=== PATIENT | male | born 1975 | race Caucasian/White ===

== ENCOUNTER 2024-09-19 17:49 | Emergency (ER) | payer MEDICAID, SELFPAY ==
--- NOTE | 2024-09-19 18:13 | PC.NURSE ---
i called pt from the lobby x1 and recived no answer.
[2024-09-19 18:16] VITALS: BP 173/101; PULSE 89; RESP 18; TEMP 37.1; O2SAT 98; BMI 33.3
--- NOTE | 2024-09-19 18:24 | XR_ITS ---
Examination: Forearm, left, 2 views. Technique: Forearm, AP, lateral 2 views Date and time of exam: September 19, 2024 1857 hrs. Indications: Injury to the forearm today, pain Findings: No fracture. Low the lateral view the distal ulna is dorsally positioned, clinical correlation advised No opaque foreign body seen Impression: No opaque foreign body seen
--- NOTE | 2024-09-19 18:40 | EDNOTE_ITS ---
ED Wound/Laceration-RME/HPI General Chief Complaint: Wound/Laceration Stated Complaint: CUT HAND W/HANDSAW Time Seen by Provider: 09/19/24 18:29 Arrival date/time: 09/19/24 17:49 49M with no significant PMH presents to ED with L forearm lac after he accidentally cut himself with a saw. Patient has not had a tetanus shot in the past 5 years. Limitations: no limitations Related Data Allergies Allergy/AdvReac Type Severity Reaction Status Date / Time No Known Allergies Allergy Verified 09/19/24 17:54 Review of Systems Review of Systems Systems Reviewed: All systems reviewed, normal except as documented Constitutional Constitutional: Reports system reviewed and no additional complaints, except as documented, Denies fever(s) and Denies headache(s) ENT Ears, Nose, Mouth, and Throat: Denies disequilibrium and Denies headache(s) Cardiovascular Cardiovascular: Reports system reviewed and no additional complaints, except as documented, Denies chest pain and Denies dyspnea Respiratory Respiratory: Reports system reviewed and no additional complaints, except as documented, Denies cough and Denies dyspnea Gastrointestinal Gastrointestinal: Reports system reviewed and no additional complaints, except as documented, Denies abdominal pain, Denies nausea and Denies vomiting Integumentary/Breasts Skin/Breast: Reports as per HPI and Reports skin pain Neurologic Neurologic: Reports system reviewed and no additional complaints, except as documented, Denies confusion, Denies disequilibrium and Denies headache(s) Psychiatric Psychiatric: Denies confusion Past Medical History Social History SMOKING STATUS: Current every day smoker ED Exam General Limitations: Present no limitations General appearance: Present alert and in no apparent distress Head Head exam: Present atraumatic Eye Eye exam: Present normal appearance, PERRL and EOMI ENT ENT exam: Present normal exam, normal oropharynx and mucous membranes moist Neck Neck exam: Present normal inspection, full ROM and trachea midline Chest Chest inspection: Present normal inspection and symmetric chest wall rise Respiratory Respiratory exam: Present normal lung sounds bilaterally Cardiovascular Cardiovascular exam: Present regular rate, normal rhythm and normal heart sounds Abdominal Exam Abdominal exam: Present soft and normal bowel sounds Extremities Exam Extremities exam: Present full ROM Expanded Upper Extremity Exam Forearm/Wrist exam: Present full ROM and laceration (3 cm L forearm near wrist) Back Exam Back exam: Present normal inspection and full ROM Neurological Exam Neurological exam: Present alert, oriented X3 and CN II-XII intact Psychiatric Psychiatric exam: Present normal affect and normal mood Skin Skin exam: Present warm, dry, intact and normal color Course Quality Measures none Orders Category Date Time Status Stapler to Beside ONCE Care 09/19/24 18:34 Completed Wound Care NOW Care 09/19/24 18:24 Completed XR forearm LT 2V Stat Exams 09/19/24 18:24 Completed Naproxen [Naprosyn] Med 09/19/24 21:38 Discontinued 500 mg PO X1 ONE Tet,Diphth,Pertuss(Acell)-Tdap [Boostrix Vacc] Med 09/19/24 18:24 Discontinued 0.5 ml IMI .ONCE ONE Vital Signs Vital signs: Vital Signs Temperature 98.8 F 09/19/24 18:16 Pulse Rate 89 09/19/24 18:16 Respiratory Rate 18 09/19/24 18:16 Blood Pressure 173/101 H 09/19/24 18:16 Pulse Oximetry (%) 98 09/19/24 18:16 Oxygen Delivery Method Room Air 09/19/24 18:16 O2 at 98% on RA and WNLs Wound / Laceration MDM Narrative MDM Narrative:: 49M with no significant PMH presents to ED with L forearm lac after he accidentally cut himself with a saw. Patient has not had a tetanus shot in the past 5 years. Physical exam reveals 3 cm lac on L forearm near wrist. ROM intact. Patient is afebrile, calm, and alert. Wound thoroughly irrigated. Tdap given. Closed with 10 vitor. XR no FB. Patient data External records reviewed:: None Clinical information provided by:: patient Social determinants that could affect healthcare access:: none Patient has the following chronic illnesses:: none How is presenting disease/condition affected by chronic disease/condition?: no chronic disease Evaluation data The following diagnostics were reviewed and interpreted by me:: radiology exam(s) Lab and/or radiology exams considered but not ordered:: ordered Interpretation Summary: above Medications / Prescriptions Medications or Prescriptions considered but not ordered:: ordered Medication administrations:: Medication Administration History Discontinued Medications Diphtheria/Tetanus/Acell Pertussis (Diphth,Pertuss(Acell),Tet Vac 0.5 Ml Vial) 0.5 ml IMi .ONCE ONE Stop: 09/19/24 18:25 Last Admin: 09/19/24 19:26 Dose: 0.5 ml Documented By: TINY Naproxen (Naproxen 250 Mg Tablet) 500 mg PO X1 ONE Stop: 09/19/24 21:39 Last Admin: 09/19/24 21:55 Dose: 500 mg Documented By: TINY Comments: pt calm and relaxed while giving medication above Consultations Consultation(s) initiated? (list below): No Diagnosis Wound Differential Diagnosis: laceration, abrasion and avulsion of skin Most likely diagnosis given after review of the tests above:: laceration Admission Indicated Admission indicated?: not indicated Admission Request Was there a request for admission?: No Disposition Plan Disposition Plan: Discharge Discharge Attestation Discharge Attestation: The patient and all family members were given an opportunity to ask questions and understood the discharge instructions. Discharge instructions specifically effects, indications for sooner follow up or return to the emergency department, and the expected course of current diagnosis. Patient condition: Stable Discharge Plan Plan Patient Disposition: HOME (Self Care) Disposition Comment: Stable Prescriptions/Referrals Referrals: No Primary/Family,Physician [Primary Care Provider] - In 1 week Problem List Clinical Impression: Laceration Patient/Caregiver Discharge Instructions Additional Instructions: Please follow-up with PCP within 24-48 hours and return immediately if symptoms worsen. Have vitor removed in about 10 days. Print Language: Japanese Stand Alone Forms: Patient Portal Info Letter CUONG/KAY Supervising Physician PRAFUL Supervising Physician: Dr. Mcdowell
[2024-09-19] MEDS: DIPHTH,PERTUSS(ACELL),TET VAC 0.5 ML VIAL IMi (19:26)
[2024-09-19] MEDS: NAPROXEN 250 MG TABLET 500 MG PO (21:55)
== END 2024-09-19 22:00 | disposition home or self-care (01) ==
PROVIDERS: Emergency Provider Emergency Medicine
DX: S51.812A Laceration without foreign body of left forearm, initial encounter (principal); W27.0XXA Contact with workbench tool, initial encounter; Z23 Encounter for immunization
CPT/HCPCS: 12002; 73090; 90471; 90715; 99283; A9270

== ENCOUNTER 2024-09-29 08:54 | Emergency (ER) | payer MEDICAID, SELFPAY ==
[2024-09-29 09:02] VITALS: BMI 33.9
[2024-09-29 09:03] VITALS: BP 140/85; PULSE 81; RESP 19; TEMP 37.1; O2SAT 100
--- NOTE | 2024-09-29 09:03 | PD.EDWOUND ---
ED Wound/Laceration-RME/HPI General Chief Complaint: Wound Recheck / Suture Removal Stated Complaint: Staple removal Time Seen by Provider: 09/29/24 08:59 Arrival date/time: 09/29/24 08:54 49-year-old male presents to the emergency department requesting staple removal patient has vitor in place left forearm Limitations: no limitations Related Data Allergies Allergy/AdvReac Type Severity Reaction Status Date / Time No Known Allergies Allergy Verified 09/19/24 17:54 Review of Systems Review of Systems Systems Reviewed: All systems reviewed, normal except as documented Constitutional Constitutional: Reports system reviewed and no additional complaints, except as documented, Denies fever(s) and Denies headache(s) Eyes Eyes: Reports system reviewed and no additional complaints, except as documented and Denies blurry vision ENT Ears, Nose, Mouth, and Throat: Reports system reviewed and no additional complaints, except as documented, Denies headache(s), Denies nasal congestion and Denies nasal discharge Cardiovascular Cardiovascular: Reports system reviewed and no additional complaints, except as documented, Denies chest pain and Denies dyspnea Respiratory Respiratory: Reports system reviewed and no additional complaints, except as documented, Denies chest congestion, Denies cough and Denies dyspnea Gastrointestinal Gastrointestinal: Reports system reviewed and no additional complaints, except as documented and Denies abdominal pain Integumentary/Breasts Skin/Breast: Reports system reviewed and no additional complaints, except as documented, Denies rash and Reports wounds ([place] in place left forearm) Neurologic Neurologic: Reports system reviewed and no additional complaints, except as documented, Reports as per HPI and Denies headache(s) Past Medical History Past Medical History NEUROLOGIC: Negative Neurological Disorders CARDIAC: Negative Cardiac Disorders ED Exam General Limitations: Present no limitations General appearance: Present alert and in no apparent distress Head Head exam: Present atraumatic Eye Eye exam: Present normal appearance, PERRL and EOMI ENT ENT exam: Present normal exam, normal oropharynx and mucous membranes moist Neck Neck exam: Present normal inspection, full ROM and trachea midline Chest Chest inspection: Present normal inspection and symmetric chest wall rise Respiratory Respiratory exam: Present normal lung sounds bilaterally Cardiovascular Cardiovascular exam: Present regular rate, normal rhythm and normal heart sounds Abdominal Exam Abdominal exam: Present soft and normal bowel sounds Extremities Exam Extremities exam: Present normal inspection and full ROM Back Exam Back exam: Present normal inspection and full ROM Neurological Exam Neurological exam: Present alert, oriented X3 and CN II-XII intact Psychiatric Psychiatric exam: Present normal affect and normal mood Skin Skin exam: Present warm, dry and other ([place] in place left forearm) Course Quality Measures none Vital Signs Vital signs: Vital Signs Temperature 98.7 F 09/29/24 09:03 Pulse Rate 81 09/29/24 09:03 Respiratory Rate 19 09/29/24 09:03 Blood Pressure 140/85 H 09/29/24 09:03 Pulse Oximetry (%) 100 09/29/24 09:03 Oxygen Delivery Method Room Air 09/29/24 09:03 O2 saturation 100% on room air within normal limits Wound / Laceration MDM Narrative MDM Narrative:: 49-year-old male presents to the emergency department requesting staple removal patient has vitor in place left forearm On exam patient has vitor in place left forearm patient has no evidence of infection no discharge wound appears to be well-approximated All vitor removed in their entirety Patient discharged home in no distress to follow-up with PCP as needed and for emergent symptoms return immediately Patient data External records reviewed:: [facility] previous records Clinical information provided by:: patient Social determinants that could affect healthcare access:: none Patient has the following chronic illnesses:: See history How is presenting disease/condition affected by chronic disease/condition?: uneffected by Evaluation data The following diagnostics were reviewed and interpreted by me:: other (specify) (N/A) Lab and/or radiology exams considered but not ordered:: Consider not ordered Interpretation Summary: N/A Medications / Prescriptions Medications or Prescriptions considered but not ordered:: Given no meds Medication administrations:: No meds Consultations Consultation(s) initiated? (list below): No Diagnosis Wound Differential Diagnosis: laceration, abrasion and avulsion of skin Most likely diagnosis given after review of the tests above:: Staple removal Admission Indicated Admission indicated?: not indicated Admission Request Was there a request for admission?: No Disposition Plan Disposition Plan: Discharge Discharge Attestation Discharge Attestation: The patient and all family members were given an opportunity to ask questions and understood the discharge instructions. Discharge instructions specifically effects, indications for sooner follow up or return to the emergency department, and the expected course of current diagnosis. Patient condition: Stable Discharge Plan Plan Patient Disposition: HOME (Self Care) Disposition Comment: Stable Problem List Clinical Impression: Removal of staple Patient/Caregiver Discharge Instructions Education Materials: ED Stitches/Staple Removal No ... Additional Instructions: Please follow up with your primary care doctor in the next 24-48hrs for any worsening symptoms return here immediately Print Language: British Stand Alone Forms: [place] Award Info., Patient Portal Info Letter PA/WEB CONTENT MANAGER Supervising Physician PA/WEB CONTENT MANAGER Supervising Physician: dr srivastava
== END 2024-09-29 19:03 | disposition home or self-care (01) ==
LOC: SERX 09:36
PROVIDERS: Emergency Provider Emergency Medicine
DX: Z48.02 Encounter for removal of sutures (principal)
CPT/HCPCS: 99282

== ENCOUNTER 2024-10-06 22:27 | Emergency (ER) | payer MEDICAID, SELFPAY ==
[2024-10-06 22:38] VITALS: BP 175/100; PULSE 83; RESP 20; TEMP 37.1; O2SAT 99; BMI 33.7
--- NOTE | 2024-10-06 22:43 | PD.EDRME ---
Rapid Medical Screening Exam RME Arrival date/time: 10/06/24 22:27 49-year-old male past medical history hypertension breast Emergency Department complaining of epigastric pain that he describes as burning after eating tacos earlier today. Chief Complaint: Abdominal Pain Time Seen by Provider: 10/06/24 22:31 Vital signs: Vital Signs Temperature 98.8 F 10/06/24 22:38 Pulse Rate 83 10/06/24 22:38 Respiratory Rate 20 10/06/24 22:38 Blood Pressure 175/100 H 10/06/24 22:38 Pulse Oximetry (%) 99 10/06/24 22:38 Oxygen Delivery Method Room Air 10/06/24 22:38 Vital signs reviewed by provider: Yes
[2024-10-06] MEDS: MG HYD/AL HYD/SIME (Maalox Reg) SUSP 30 ML UDC PO (22:58)
[2024-10-06] MEDS: FAMOTIDINE 20 MG TABLET 40 MG PO (22:58)
[2024-10-06 23:25] LABS: Basophils % (Auto) 0 % (0-2.5); Eosinophils # (Auto) 0.2 Thou/mm3 (0.0-0.5); Eosinophils % (Auto) 3 % (0-10); Hematocrit 43.2 % (41.0-53.0); Hemoglobin 14.6 g/dL (13.5-16.0); Immature Granulocytes % (Auto) 1 % (0-0); Immature Granulocytes Auto 0.04 Thou/mm3 (0.00-0.00); Lymphocytes % (Auto) 12 % (10-50); Mean Corpuscular HGB Conc 33.8 g/dl (31.0-37.0); Mean Corpuscular Hemoglobin 28.9 pg (25.0-35.0); Mean Corpuscular Volume 85 fL (80-100); Monocytes # (Auto) 0.6 Thou/mm3 (0.0-0.8); Monocytes % (Auto) 7 % (0-12); Neutrophils # (Auto) 6.1 Thou/mm3 (1.8-7.7); Neutrophils % (Auto) 77 % (37-80); Nucleated Red Blood Cell % 0 /100 WBC (0); Platelet Count 262 Thou/mm3 (140-440); RDW Standard Deviation 41.1 fL (35.1-43.9); Red Blood Count 5.06 Miln/mm3 (4.50-5.90); White Blood Count 7.9 Thou/mm3 (3.8-10.6)
[2024-10-06 23:38] LABS: Alanine Aminotransferase 365 U/L (10-49); Albumin, Serum 4.7 gm/dL (3.5-5.0); Albumin/Globulin Ratio 1.7 (1.2-2.2); Alkaline Phosphatase 140 U/L (46-116); Anion Gap 8 (7-16); Aspartate Amino Transferase 442 U/L (0-34); BUN/Creatinine Ratio 19 Ratio (12-20); Bilirubin,Total 1.6 mg/dL (0.3-1.2); Blood Urea Nitrogen 19 mg/dL (9-23); Calcium 9.6 mg/dL (8.3-10.6); Calcium (Corrected) 9.6 mg/dL (8.5-10.1); Carbon Dioxide 28.5 mMol/L (20.0-31.0); Chloride 101 mMol/L (98-107); Estimated Creatinine Clearance 102.8 mL/min (>60); Globulin 2.8 gm/dL (2.3-3.5); Glucose 124 mg/dL (74-106); Lipase 38 U/L (12-53); Osmolality,Calculated 277 (275-295); Potassium 3.6 mMol/L (3.4-5.1); Sodium 137 mMol/L (136-145); Total Protein 7.5 gm/dL (5.7-8.2); eGFR > 60 See Note
--- NOTE | 2024-10-06 23:41 | XR_ITS ---
Examination: Abdomen sonogram, Limited Date and time of exam: October 06, 2024 0023 hours INDICATIONS: Epigastric pain and nausea onset today Technique: Real-time bhardwaj scale transabdominal sonographic images of the upper abdomen obtained. Findings: Gallbladder sludge Gallbladder wall 0.4 cm with edema Common bile duct 0.5 cm Pancreatic head 3.0 cm Liver 13.4 cm no liver lesions Normal hepatopedal portal venous flow Patent IVC IMPRESSION: Recommend HIDA scan or MRCP follow-up to confirm acute acalculous cholecystitis
[2024-10-07] VITALS (26 sets, daily range): BP systolic 94–161; BP diastolic 60–104; PULSE 52–78; RESP 16–19; TEMP 36.4–36.9; O2SAT 66–99
--- NOTE | 2024-10-07 | XR_ITS ---
MRI abdomen, without contrast. MRCP Date and time of exam: October 07, 2024 1221 hours INDICATIONS: Elevated liver function tests, epigastric pain after eating burning sensation in the abdomen beginning yesterday, thickened gallbladder wall with edema on gallbladder sonogram October 06, 2024 Technique: Multiple axial and coronal images of the abdomen have been obtained with the Siemens 1.5T MRI scanner. Images obtained included T1 weighted transverse images, T2-weighted transverse images, T2-weighted transverse images fat-suppressed, T2 weighted haste fat suppressed transverse images, T1 weighted images, in and out of phase images, T2-weighted coronal images, breath hold, T2 weighted haze coronal images as well as T2 weighted coronal thick slab images, MRCP. Findings: No focal liver lesions Suspicious for tiny gallstones Gallbladder wall does not exhibit definite thickening Normal sized common bile duct with no stones Spleen is not enlarged Negative for pancreatitis No hydronephrosis No ascites IMPRESSION: Suspicious for cholelithiasis, no definite gallbladder wall thickening or edema, suggest HIDA scan follow-up as clinically warranted No extrahepatic biliary stones
[2024-10-07 00:18] LABS: Alcohol, Blood Medical < 3.0 mg/dL (0-10.0)
[2024-10-07 01:08] LABS: Collection Type, Urine Clean Catch
[2024-10-07 01:28] LABS: Amphetamine/Methamp Scrn,U Negative (Negative); Barbiturate Screen,Urine Negative (Negative); Benzodiazepines Screen,Urine Negative (Negative); Benzoylecgonine Screen, Ur Negative (Negative); Fentanyl Screen,Urine Negative (Negative); Opiate Screen,Urine Negative (Negative); THC Screen,Urine Negative (Negative)
[2024-10-07 01:41] LABS: Bacteria,Urine Rare; Bilirubin,Urine Negative (Negative); Blood,Urine Negative (Negative); Clarity,Urine Clear (Clear/Hazy); Color,Urine Yellow (Lt Yel-Yel); Culture Indicated,Urine Not Indicated; Glucose, Urine Negative (Negative); Ketones,Urine Negative (Negative); Leukocyte Esterase,Urine Negative (Negative); Nitrite,Urine Negative (Negative); PH,Urine 7.5 (5.0-7.0); Protein,Urine Trace (Neg - Trace); RBC,Urine 5 /hpf (0-3); Specific Gravity,Urine 1.028 (1.001-1.035); Squamous Epithelial Cell,Urine < 1 /hpf (0-5); WBC,Urine 2 /hpf (0-5)
--- NOTE | 2024-10-07 02:00 | PRELIM_ITS ---
Right upper quadrant abdominal ultrasound with doppler and wave doppler spectral analysis. September 0023 hours Clinical history: Abdominal pain.Technique: Grayscale and color flow images of the right upper quadrant are provided. Hepatic and portal veins were also imaged with color flow images. Comparison: None.Findings:The liver demonstrates increased echogenicity. No intrahepatic biliary duct al dilatation. Gallbladder sludge. Gallbladder wall thickening. No gallbladder calculus or perichole cystic fluid is demonstrated. The common bile duct is dilated in caliber at 5.3 mm. The pancreas is e chogenic. The right kidney is within normal limits.The portal vein is patent with hepatopetal flow.Im pression:Gallbladder sludge and gallbladder wall thickening are suspicious for acute cholecystitis.Ec hogenic pancreas suspicious for acute pancreatitis. Consider further evaluation.Liver steatosis.Dilat ed CBD suspicious for choledocholithiasis. Report Electronically Signed By: Jose Massey 10/07/2024 2:00:16 AM [EST]
--- NOTE | 2024-10-07 03:55 | EDNOTE_ITS ---
ED Abdominal Pain RME/HPI General Chief Complaint: Abdominal Pain Stated complaint: Abdominal Pain Time seen by provider: 10/06/24 22:31 Arrival date/time: 10/06/24 22:27 RME / HPI RME / HPI narrative: 10/06/24 22:27 49-year-old male past medical history hypertension presents Emergency Department complaining of epigastric pain that he describes as burning after eating tacos earlier today. ------ Dr. Whiting?s Main ED Evaluation: 49yo male presents to the ED for a chief complaint of epigastric pain x 1600. Patient states he's had intermitent pain since 09/23/24, but endorses his pain significantly worsened after he ate tacos yesterday afternoon at 1600. He endorses having an emetic episode after he ate. He states his pain persisted, currently rating it an 8 out of 10, so he came in for evaluation. He denies any diarrhea, fever, chills or any other associated symptoms. No known allergies. Related Data Allergies Allergy/AdvReac Type Severity Reaction Status Date / Time No Known Allergies Allergy Verified 09/19/24 17:54 Review of Systems Review of Systems Systems Reviewed: All systems reviewed, normal except as documented Past Medical History Past Medical History NEUROLOGIC: Negative Neurological Disorders CARDIAC: Negative Cardiac Disorders Social History SMOKING STATUS: Former smoker ED Exam Narrative Physical exam: GENERAL APPEARANCE: alert and oriented x 4, well-developed, well-nourished, no acute distress VITALS: All vitals were reviewed and the pulse ox is 97% on room air, which is normal according to my interpretation. HEENT: Normocephalic, atraumatic; pupils equal, round, reactive to light; EOMI; mucous membranes pink, moist; oropharynx clear NECK: Supple LUNGS: CTABL; no wheezes, no rales, no rhonchi HEART: Regular rate, regular rhythm; normal S1, S2; no murmurs ABDOMEN: non distended; normal BS; soft, RUQ tenderness, + Cheung sign, voluntary guarding, no rebound; no masses, no organomegaly, no hernia BACK: no CVA tenderness EXTREMITIES: atraumatic; no edema NEUROLOGIC: awake; alert and oriented x4; cranial nerves II-XII grossly intact; no focal sensory or motor deficits PSYCHIATRIC: appropriate mood and affect SKIN: warm, dry, normal color; no rashes Course Quality Measures none Orders Category Date Time Status Crusher Screen Repairer STAT Care 10/07/24 03:57 Completed Continuous Pulse Oximetry STAT Care 10/07/24 03:58 Completed EKG (ED ONLY) *Do not use* NOW Care 10/07/24 03:57 Completed Insert IV STAT Care 10/07/24 03:57 Completed MRI Screening NOW Care 10/07/24 04:09 Completed NPO STAT Care 10/07/24 03:57 Completed Consult to General Surgery Stat Cons 10/07/24 14:12 Ordered EKG (ED Only) Stat Exams 10/07/24 03:57 Draft MR MRCP Stat Exams 10/07/24 Completed NM HIDA w pharm Stat Exams 10/07/24 14:55 Completed US gall bladder Stat Exams 10/06/24 23:41 Completed Alcohol, Blood Medical Stat Lab 10/06/24 22:47 Completed CBC Stat Lab 10/06/24 22:47 Completed CMP [Comprehensive Metabolic Panel] Stat Lab 10/06/24 22:47 Completed Drug Screen,Urine Stat Lab 10/06/24 00:43 Completed Lipase Stat Lab 10/06/24 22:47 Completed Magnesium Stat Lab 10/07/24 08:43 Completed Urinalysis, C/S if Indicated Stat Lab 10/06/24 00:43 Completed Famotidine [Pepcid] Med 10/06/24 22:43 Discontinued 40 mg PO X1 ONE HYDROmorphone INJ [Dilaudid Inj] Med 10/07/24 06:33 Discontinued 1 mg IVP X1 ONE HYDROmorphone INJ [Dilaudid Inj] Med 10/07/24 18:07 Discontinued 1 mg IVP X1 ONE Ketorolac Inj [Toradol Inj] Med 10/07/24 06:33 Discontinued 30 mg IVP X1 ONE Morphine Inj Med 10/07/24 04:05 Discontinued 4 mg IVP X1 ONE Ondansetron Inj [Zofran Inj] Med 10/07/24 04:05 Discontinued 4 mg IV X1 ONE Piper/Tazo Inj [Zosyn Inj] 4.5 gm Med 10/07/24 03:58 Discontinued Sodium Chloride 0.9% (P) [NS 0.9% mini bag] 100 ml IV NOW Sincalide Inj [Kinevac Inj] Med 10/07/24 15:24 Discontinued 5 mcg .ROUTE .STK-MED ONE Sodium Chloride 0.9% 1000 ml [Ns] 1,000 ml Med 10/07/24 03:57 Discontinued IV 999 mls/hr Sterile Water 20 ml Med 10/07/24 15:24 Discontinued .ROUTE .STK-MED mg Hyd/Al Hyd/Lew Susp [Maalox Susp] Med 10/06/24 22:43 Discontinued 30 ml PO X1 ONE Vital Signs Vital signs: Vital Signs Temperature 98.8 F 10/06/24 22:38 Pulse Rate 83 10/06/24 22:38 Respiratory Rate 20 10/06/24 22:38 Blood Pressure 175/100 H 10/06/24 22:38 Pulse Oximetry (%) 99 10/06/24 22:38 Oxygen Delivery Method Room Air 10/06/24 22:38 Abdominal Pain MDM MDM Narrative MDM Narrative:: Scribe Attestation: 10/07/24 - Patsy Massey am scribing for and in the presence of Dr. Whiting. Patient data External records reviewed:: [facility] previous records (Per chart review, patient has no relevant previous ED visits or admissions.) Clinical information provided by:: patient Social determinants that could affect healthcare access:: none Patient has the following chronic illnesses:: none How is presenting disease/condition affected by chronic disease/condition?: no chronic disease Evaluation data The following diagnostics were reviewed and interpreted by me:: lab results and radiology exam(s) Lab and/or radiology exams considered but not ordered:: none Interpretation Summary: CBC is normal, Total Bilirubin is elevated at 1.6, LFTs are elevated, Lipase is normal, UDS is negative, UA is unremarkable, Blood alcohol is negative, according to my interpretation. ---- Telerad Preliminary Report Draft Patient: JUMANA BANDA [facility]. Record#: [id number] Birthdate: 1975 Age/Sex: 49 / M Location: [facility] Attending Dr: Ordering Physician: Date of Service: Procedure(s): Accession Number(s): cc: ~ Right upper quadrant abdominal ultrasound with doppler and wave doppler spectral analysis. October 06, 2024 0023 hours Clinical history: Abdominal pain. Technique: Grayscale and color flow images of the right upper quadrant are provided. Hepatic and portal veins were also imaged with color flow images. Comparison: None. Findings: The liver demonstrates increased echogenicity. No intrahepatic biliary ductal dilatation. Gallbladder sludge. Gallbladder wall thickening. No gallbladder calculus or pericholecystic fluid is demonstrated. The common bile duct is dilated in caliber at 5.3 mm. The pancreas is echogenic. The right kidney is within normal limits. The portal vein is patent with hepatopetal flow. Impression: Gallbladder sludge and gallbladder wall thickening are suspicious for acute cholecystitis. Echogenic pancreas suspicious for acute pancreatitis. Consider further evaluation. Liver steatosis. Dilated CBD suspicious for choledocholithiasis. Report Electronically Signed By: Jose Massey 10/07/2024 2:00:16 AM [EST] Medications / Prescriptions Medications or Prescriptions considered but not ordered:: none Medication administrations:: Medication Administration History Discontinued Medications Al Hydrox/Mg Hydrox/Simethicone (Mg Hyd/Al Hyd/Lew (Maalox Reg) Susp 30 Ml Udc) 30 ml PO X1 ONE Stop: 10/06/24 22:44 Last Admin: 10/06/24 22:58 Dose: 30 ml Documented By: MYLENE Famotidine (Famotidine 20 Mg Tablet) 40 mg PO X1 ONE Stop: 10/06/24 22:44 Last Admin: 10/06/24 22:58 Dose: 40 mg Documented By: MYLENE Hydromorphone HCl (Hydromorphone Inj 2 Mg/Ml Vial) 1 mg IVP X1 ONE Stop: 10/07/24 06:34 Last Admin: 10/07/24 06:52 Dose: 1 mg Documented By: MARLON Hydromorphone HCl (Hydromorphone Inj 2 Mg/Ml Vial) 1 mg IVP X1 ONE Stop: 10/07/24 18:08 Last Admin: 10/07/24 18:38 Dose: 1 mg Documented By: CAITLIN Sodium Chloride (Ns) 1,000 mls @ 999 mls/hr IV .Q1H1M ONE Stop: 10/07/24 04:57 Last Infusion: 10/07/24 06:31 Dose: Infused Documented By: Admin: 10/07/24 04:46 Dose: 999 mls/hr Documented By: MARLON Piperacillin Sod/Tazobactam (Sod 4.5 gm/ Sodium Chloride) 100 mls @ 200 mls/hr IV NOW ONE Stop: 10/07/24 04:27 Last Infusion: 10/07/24 05:15 Dose: Infused Documented By: Admin: 10/07/24 04:45 Dose: 200 mls/hr Documented By: MARLON Sterile Water (Sterile Water) Confirm Administered Dose 20 mls @ ud .ROUTE .STK- MED ONE Stop: 10/07/24 15:25 Last Admin: 10/07/24 18:40 Dose: Not Given Documented By: CAITLIN Non-Admin Reason: Duplicate Medication on eMAR Ketorolac Tromethamine (Ketorolac Inj 30 Mg/Ml Vial) 30 mg IVP X1 ONE Stop: 10/07/24 06:34 Last Admin: 10/07/24 06:51 Dose: 30 mg Documented By: MARLON Morphine Sulfate (Morphine Sulf Inj 10 Mg/Ml Vial) 4 mg IVP X1 ONE Stop: 10/07/24 04:06 Last Admin: 10/07/24 04:46 Dose: 4 mg Documented By: MARLON Ondansetron HCl (Ondansetron Inj 2 Mg/Ml Inj 2 Ml) 4 mg IV X1 ONE; Protocol Stop: 10/07/24 04:06 Last Admin: 10/07/24 04:46 Dose: 4 mg Documented By: MARLON Sincalide (Sincalide Inj 5 Mcg Vial) Confirm Administered Dose 5 mcg .ROUTE .STK-MED ONE Stop: 10/07/24 15:25 Last Admin: 10/07/24 18:40 Dose: Not Given Documented By: CAITLIN Non-Admin Reason: Duplicate Medication on eMAR see above Consultations Consultation(s) initiated? (list below): No Diagnosis Differential diagnosis abdominal pain: pancreatitis and other (cholelithiasis, choledocolithiasis, cholecystitis, gallstone pancreatitis, gallstone ileus) Most likely diagnosis given after review of the tests above:: final dx pending at sign out Admission Indicated Admission indicated?: not indicated Admission Request Was there a request for admission?: No Disposition Plan Disposition Plan: other (specify) (Signed out to Dr. Salas at 0600 [facility] Discharge Plan Plan Patient Disposition: HOME (Self Care) Disposition Comment: Stable for discharge Patient condition on transfer: Stable Prescriptions/Referrals Referrals: [facility] [Outside] - In 1 week Robin Juárez MD [Primary Care Provider] - In 1 week Fernando Brand MD [Physician] - In 1 week Problem List Clinical Impression: Abnormal LFTs (liver function tests), Acute epigastric pain Patient/Caregiver Discharge Instructions Discharge Activity: activity as tolerated Diet Instructions: You should avoid spicy foods and salsa and any other food that gives you abdominal pain Education Materials: Liver Panel, Tests for Liver Disease, ED Epigastric Pain (Uncertain Cause) Additional Instructions: Today in the emergency department you were seen for upper abdominal pain. You had multiple tests including a chest x-ray which was normal, and ultrasound of your gallbladder which seen and does show some gallbladder disease. After that you received a test called an MRCP as well as a test called a HIDA scan. Both of those 2 tests showed that your gallbladder is normal. Your blood work showed that your liver function tests are elevated. There are potentially many causes of this, so it is really important that you follow-up with Dr. Brand. Dr. Brand is our medical receptionist and he is a specialist in these areas. You may wind up needing a test called an endoscopy. This is a camera that is put down through your mouth and your stomach to take pictures. I have called in several prescriptions to your pharmacy. You should take these as directed Please return to the emergency department if you are not improving within the next couple of days and/or you are worsening in any way Otherwise you should follow-up with your primary care doctor or in the family health care clinic within the next several days Print Language: Belarusian Stand Alone Forms: [employer] Award Info., Patient Portal Info Letter
--- NOTE | 2024-10-07 03:57 | EKG_ITS ---
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
[2024-10-07] MEDS: PIPER/TAZO INJ 4.5 GM in SODIUM CHLORIDE 0.9% (P) 100 ML IV (04:45)
[2024-10-07] MEDS: SODIUM CHLORIDE 0.9% 1000 ML 1,000 ML 999 ML IV (04:46)
[2024-10-07] MEDS: MORPHINE SULF INJ 10 MG/ML VIAL 4 MG IVP (04:46)
[2024-10-07] MEDS: ONDANSETRON INJ 2 MG/ML INJ 2 ML 4 MG IV (04:46)
--- NOTE | 2024-10-07 06:05 | EDNOTE_ITS ---
Emergency Room Addendum <Shannan Cloud - Last Filed: 10/07/24 13:49> Addendum Narrative: 0600: Care assumed from Dr. Whiting, the previous shift emergency physician. Past medical, surgical, social and family history reviewed. Vitals and home medications reviewed. I will assume the care of the patient at this time, pending MRCP and final disposition. Please refer to the emergency department record for history and examination from initial visit.? Nursing notes reviewed by me. Vital signs reviewed by me. [place] medical records reviewed by me. MRCP shows cholelithiasis, no definite gallbladder wall thickening or edema, no extrahepatic biliary stones. <Caden Salas MD - Last Filed: 10/07/24 17:15> Addendum Narrative: I took over the care from Dr. Whiting at 6 AM on 10/07/2024, see his notes for complete H&P and ED course. I reviewed all pending diagnostic test results. My review of the MRCP report is: Suspicious for cholelithiasis, no definite gallbladder wall thickening or edema, suggest HIDA scan follow-up. No extrahepatic biliary stones. I discussed the case with our surgeon. About the presentation and exam and diagnostics and treatments here. And possible need of further care in the hospital. Recommended outpatient follow-up with him. HIDA scan ordered and pending. During my watch, he needed more help with pain. Dilaudid 1 mg IV given, helped him significantly. Otherwise, he remained stable. At 6 PM on 10/07/2024, the care of the patient was transferred to Dr. Whiting. Caden Salas MD
[2024-10-07] MEDS: KETOROLAC INJ 30 MG/ML VIAL IVP (06:51)
[2024-10-07] MEDS: HYDROmorphone INJ 2 MG/ML VIAL 1 MG IVP ×2 (06:52→18:38)
--- NOTE | 2024-10-07 06:57 | PC.NURSE ---
pt was co pain returning. aware.
--- NOTE | 2024-10-07 07:22 | PC.NURSE ---
RECEIVED REPORT AND ASSUMED CARE OF PATIENT. PATIENT SLEEPING AND APPEARS TO BE COMFORTABLE WITH NO SIGNS OF DISTRESS. VITAL SIGNS STABLE.
[2024-10-07 09:03] LABS: Magnesium 2.2 mg/dL (1.6-2.6)
--- NOTE | 2024-10-07 14:55 | XR_ITS ---
Examination: JITENDRA, hepatobiliary radioisotope scan Date and time of exam: October 07, 2024 at 1544 hours INDICATIONS: Epigastric pain right upper abdominal pain beginning 2 days ago, hypertension, elevated total bilirubin and alkaline phosphatase on laboratory examination 2 days ago, gallbladder sonogram October 06, 2024 gallbladder sludge Technique: Explain 3 mCi of 99M Hepatolite administered. Serial imaging then obtained from immediate through 60 minutes. Findings: Radioisotope activity within the liver is reasonably homogenous. No gallbladder, bile duct or small bowel activity noted IMPRESSION: No gallbladder, common bile duct or small bowel activity noted, suggesting primary liver disease
--- NOTE | 2024-10-07 15:55 | PC.NURSE ---
Patient taken to nuclear medicine.
--- NOTE | 2024-10-07 18:05 | PC.NURSE ---
Patient states abd pain 9/10. Informed ER provider and verbal order given for 1 mg hydromorphone.
--- NOTE | 2024-10-07 18:23 | EDNOTE_ITS ---
Emergency Room Addendum Addendum Narrative: 18:[address] Caden Salas MD, the previous shift emergency physician. Past medical, surgical, social and family history reviewed. Vitals and home medications reviewed. I will assume the care of the patient at this time, pending HIDA scan and final disposition. Please refer to the emergency department record for history and examination from initial visit, and addendums. Nursing notes reviewed by me. Vital signs reviewed by me. [place] medical records reviewed by me. I reviewed all current diagnostic test results. 18:38 Currently, patient's pain is not biliary colic in any way. He does not have cholecystitis. His LFTs must be elevated chronically. I will discharge him with prescriptions for GERD and GI referral to Dr. Brand. I have spoken with the patient and discussed today?s findings, in addition to providing specific details for the plan of care. Questions are answered and there is an agreement with the plan. Re-assessment at the time of disposition demonstrates that the patient is in no acute distress. The patient has remained stable throughout the entire ED visit and is without objective evidence for acute process requiring urgent intervention or hospitalization. The patient is stable for discharge; counseling is provided and documented as above, discussed symptomatic treatment and specific conditions for return. Evaluation data The following diagnostics were reviewed and interpreted by me: radiology exam(s) Examination: HIDA, hepatobiliary radioisotope scan Date and time of exam: October 07, 2024 at 1544 hours INDICATIONS: Epigastric pain right upper abdominal pain beginning 2 days ago, hypertension, elevated total bilirubin and alkaline phosphatase on laboratory examination 2 days ago, gallbladder sonogram October 06, 2024 gallbladder sludge Technique: Explain 3 mCi of 99M Hepatolite administered. Serial imaging then obtained from immediate through 60 minutes. Findings: Radioisotope activity within the liver is reasonably homogenous. No gallbladder, bile duct or small bowel activity noted IMPRESSION: No gallbladder, common bile duct or small bowel activity noted, suggesting primary liver disease Dictated By: Harsha Garcia MD, MD Attestation Attestation Scribe Attestation: I, Katia Corrales, am scribing for and in the presence of Dr. Whiting. Provider Notation: Although this document has been carefully reviewed, there may still be some phonetic and other typographical errors. These errors are purely grammatical due to imperfections in the software program and should not be construed in any way to compromise the substance of the patient's medical care during this visit.
== END 2024-10-07 19:15 | disposition home or self-care (01) ==
PROVIDERS: Emergency Provider Emergency Medicine; PCP Family Medicine
DX: R10.13 Epigastric pain (principal); R79.89 Other specified abnormal findings of blood chemistry; I10 Essential (primary) hypertension
CPT/HCPCS: 36415; 76705; 78227; 80053; 80307; 80320; 81001; 83690; 83735; 85025; 93005; 96365; 96375; 99284; A9537; J1885; J2270; J2405; J2543; J3490; J7030; S8037; 74181; A9270; G0480

== ENCOUNTER 2024-10-08 20:12 | Inpatient (IN) | payer SELFPAY ==
--- NOTE | 2024-10-08 21:03 | PD.EDRME ---
Rapid Medical Screening Exam RME Arrival date/time: 10/08/24 20:12 Chief Complaint: Abdominal Pain Time Seen by Provider: 10/08/24 20:17 Vital signs: Vital Signs Temperature 98 F 10/08/24 21:04 Pulse Rate 67 10/08/24 21:04 Respiratory Rate 18 10/08/24 21:04 Blood Pressure 160/99 H 10/08/24 21:04 Pulse Oximetry (%) 99 10/08/24 21:04 Oxygen Delivery Method Room Air 10/08/24 21:04 RME Narrative: Reports epigastric pain and n/v. Seen in ED yesterday for same complaint, HIDA scan was negative.
[2024-10-08 21:04] VITALS: BP 160/99; PULSE 67; RESP 18; TEMP 36.6; O2SAT 99
--- NOTE | 2024-10-08 21:04 | EKG_ITS ---
[facility] Test Date: 2024-10-08 Pat Name: JUMANA BANDA Department: Room: - Gender: Male [employer]: : 1975 Requested By: Keny Alamo Order Number: [id number] Reading MD: Keny Alamo Measurements Intervals [place] Rate: 72 P: 29 NE: 169 QRS: 8 QRSD: 96 T: 33 QT: 378 QTc: 416 Interpretive Statements SINUS RHYTHM Compared to ECG 10/07/2024 04:38:11 Sinus bradycardia no longer present /store/S0/[id number]/[id number].pdf
[2024-10-08] MEDS: HYDROcodone/APAP 7.5/325 TABLET 1 TAB PO (21:18)
[2024-10-08] MEDS: MG HYD/AL HYD/SIME (Maalox Reg) SUSP 30 ML UDC PO (21:20)
[2024-10-08 21:27] LABS: Basophils % (Auto) 0 % (0-2.5); Eosinophils # (Auto) 0.4 Thou/mm3 (0.0-0.5); Eosinophils % (Auto) 4 % (0-10); Hematocrit 42.6 % (41.0-53.0); Hemoglobin 14.4 g/dL (13.5-16.0); Immature Granulocytes % (Auto) 0 % (0-0); Immature Granulocytes Auto 0.04 Thou/mm3 (0.00-0.00); Lymphocytes % (Auto) 10 % (10-50); Mean Corpuscular HGB Conc 33.8 g/dl (31.0-37.0); Mean Corpuscular Hemoglobin 28.6 pg (25.0-35.0); Mean Corpuscular Volume 85 fL (80-100); Monocytes # (Auto) 0.7 Thou/mm3 (0.0-0.8); Monocytes % (Auto) 7 % (0-12); Neutrophils # (Auto) 7.9 Thou/mm3 (1.8-7.7); Neutrophils % (Auto) 79 % (37-80); Nucleated Red Blood Cell % 0 /100 WBC (0); Platelet Count 264 Thou/mm3 (140-440); RDW Standard Deviation 41.6 fL (35.1-43.9); Red Blood Count 5.04 Miln/mm3 (4.50-5.90); White Blood Count 10.1 Thou/mm3 (3.8-10.6)
[2024-10-08 21:48] LABS: Collection Type, Urine Clean Catch; Squamous Epithelial Cell,Urine 0 /hpf (0-5)
[2024-10-08 21:51] LABS: Alanine Aminotransferase 333 U/L (10-49); Albumin, Serum 4.9 gm/dL (3.5-5.0); Albumin/Globulin Ratio 1.8 (1.2-2.2); Alkaline Phosphatase 209 U/L (46-116); Anion Gap 8 (7-16); Aspartate Amino Transferase 118 U/L (0-34); BUN/Creatinine Ratio 13 Ratio (12-20); Bilirubin,Total 3.4 mg/dL (0.3-1.2); Blood Urea Nitrogen 13 mg/dL (9-23); Calcium 9.7 mg/dL (8.3-10.6); Calcium (Corrected) 9.7 mg/dL (8.5-10.1); Carbon Dioxide 28.9 mMol/L (20.0-31.0); Chloride 102 mMol/L (98-107); Globulin 2.7 gm/dL (2.3-3.5); Glucose 111 mg/dL (74-106); Lipase 37 U/L (12-53); Osmolality,Calculated 278 (275-295); Potassium 3.5 mMol/L (3.4-5.1); Sodium 139 mMol/L (136-145); Total Protein 7.6 gm/dL (5.7-8.2); Troponin I < 0.020 ng/mL (0.0-0.045); eGFR > 60 See Note
[2024-10-08 22:14] LABS: Bilirubin,Urine 2+ (Negative); Blood,Urine Negative (Negative); Clarity,Urine Clear (Clear/Hazy); Color,Urine Drk-Yellow (Lt Yel-Yel); Glucose, Urine Negative (Negative); Ketones,Urine Negative (Negative); Leukocyte Esterase,Urine Negative (Negative); Nitrite,Urine Negative (Negative); Protein,Urine Trace (Neg - Trace); RBC,Urine 6 /hpf (0-3); Specific Gravity,Urine 1.026 (1.001-1.035); WBC,Urine 4 /hpf (0-5)
--- NOTE | 2024-10-08 22:33 | EDNOTE_ITS ---
ED Abdominal Pain RME/HPI General Chief Complaint: Abdominal Pain Stated complaint: EPIGASTRIC PAIN Time seen by provider: 10/08/24 20:17 Arrival date/time: 10/08/24 20:12 RME / HPI RME / HPI narrative: Reports epigastric pain and n/v. Seen in ED yesterday for same complaint, HIDA scan was negative. ----- Dr. Whiting?s Main ED Evaluation: 49yo male with no significant past medical history presents to the ED for a chief complaint of worsening epigastric pain. Patient states his pain has worsened since he was discharged from the ED yesterday, reporting he's had 4 emetic episodes today. Patient states he feels bloated and has acid shooting up to his chest . He reports associated chills. He endorses he has not been able to stand straight or lay flat due to the pain. He has not been able to eat. Patient states he's been taking his omeprazole that was prescribed by [facility], but reports it has not helped. 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 Patient denies any sweating, fever, chills, cough, shortness of breath, back pain, diarrhea or any other associated symptoms. He denies any previous abdominal surgeries. No known allergies. Related Data Allergies Allergy/AdvReac Type Severity Reaction Status Date / Time No Known Allergies Allergy Verified 09/19/24 17:54 Review of Systems Review of Systems Systems Reviewed: All systems reviewed, normal except as documented Past Medical History Past Medical History NEUROLOGIC: Negative Neurological Disorders CARDIAC: Negative Cardiac Disorders or Congestive Heart Failure RESPIRATORY: Negative Chronic Obstructive Pulmonary Disease (COPD) GENITOURINARY: Negative Renal Disease ENDOCRINE: Negative Diabetes Mellitus Type 1 or Diabetes Mellitus Type 2 Social History SMOKING STATUS: Current some day smoker ED Exam Narrative Physical exam: GENERAL APPEARANCE: alert and oriented x 4, well-developed, well-nourished, no acute distress VITALS: All vitals were reviewed and the pulse ox is 99% on room air, which is normal according to my interpretation. HEENT: Normocephalic, atraumatic; pupils equal, round, reactive to light; EOMI; mucous membranes pink, moist; oropharynx clear NECK: Supple LUNGS: CTABL; no wheezes, no rales, no rhonchi HEART: Regular rate, regular rhythm; normal S1, S2; no murmurs ABDOMEN: non distended; normal BS; soft, moderate epigastric tenderness, positive Cheung sign, voluntary guarding, no rebound; no masses, no org anomegaly, no hernia BACK: no CVA tenderness EXTREMITIES: atraumatic; no edema NEUROLOGIC: awake; alert and oriented x4; cranial nerves II-XII grossly intact; no focal sensory or motor deficits PSYCHIATRIC: appropriate mood and affect SKIN: warm, dry, normal color; no rashes Course Course Course Narrative: 0600: Care signed out to Dr. Salas (emergency physician). Past medical, surgical, social and family history reviewed. Vitals and home medications reviewed. Results and treatment plan discussed. They will assume the care of the patient at this time and will follow the patient, pending MRCP. Quality Measures none Orders Category Date Time Status CT Screening NOW Care 10/08/24 22:40 Active Building Custodial Supervisor STAT Care 10/08/24 22:36 Active Continuous Pulse Oximetry STAT Care 10/08/24 22:36 Completed EKG (ED ONLY) *Do not use* NOW Care 10/08/24 21:04 Completed Insert IV STAT Care 10/08/24 22:36 Active MRI Screening NOW Care 10/09/24 04:22 Active NPO STAT Care 10/08/24 22:[address] angio chest abdomen pelvis Stat Exams 10/08/24 23:06 Taken EKG (ED Only) Stat Exams 10/08/24 21:04 Draft MR MRCP Stat Exams 10/09/24 Ordered US gall bladder Stat Exams 10/08/24 22:39 Completed CBC Stat Lab 10/08/24 21:13 Completed CMP [Comprehensive Metabolic Panel] Stat Lab 10/08/24 21:13 Completed Hepatitis A Antibody IgM Stat Lab 10/08/24 23:51 Completed Hepatitis A Antibody, Total* Stat Lab 10/08/24 23:51 Received Hepatitis B Core Ab,Total* Stat Lab 10/08/24 23:51 Received Hepatitis B Core Antibody IgM Stat Lab 10/08/24 23:51 Completed Hepatitis B Surface Ab Stat Lab 10/08/24 23:51 Completed Hepatitis B Surface Antigen Stat Lab 10/08/24 23:51 Completed Hepatitis Be Antibody* Stat Lab 10/08/24 23:51 Received Hepatitis Be Antigen* Stat Lab 10/08/24 23:51 Received Hepatitis C Antibody Stat Lab 10/08/24 23:51 Completed Lipase Stat Lab 10/08/24 21:13 Completed Magnesium Stat Lab 10/08/24 21:13 Completed Troponin I Stat Lab 10/08/24 21:13 Completed UA [Urinalysis] Stat Lab 10/08/24 21:35 Completed Famotidine Inj [Pepcid Inj] Med 10/08/24 23:08 Discontinued 20 mg IVP X1 ONE HYDROcodone*/APAP 7.5/325 [Arbon 7.5/325] Med 10/08/24 21:10 Discontinued 1 tab PO X1 ONE HYDROmorphone INJ [Dilaudid Inj] Med 10/08/24 23:07 Discontinued 1 mg IVP X1 ONE Ondansetron Inj [Zofran Inj] Med 10/08/24 23:07 Discontinued 4 mg IV X1 ONE Piper/Tazo Inj [Zosyn Inj] 4.5 gm Med 10/09/24 02:38 Discontinued Sodium Chloride 0.9% (P) [NS 0.9% mini bag] 100 ml IV NOW Sodium Chloride 0.9% 1000 ml [Ns] 1,000 ml Med 10/08/24 22:36 Discontinued IV 999 mls/hr mg Hyd/Al Hyd/Lew Susp [Maalox Susp] Med 10/08/24 21:19 Discontinued 30 ml PO X1 ONE Vital Signs Vital signs: Vital Signs Temperature 98 F 10/08/24 21:04 Pulse Rate 67 10/08/24 21:04 Respiratory Rate 18 10/08/24 21:04 Blood Pressure 160/99 H 10/08/24 21:04 Pulse Oximetry (%) 99 10/08/24 21:04 Oxygen Delivery Method Room Air 10/08/24 21:04 Abdominal Pain MDM MDM Narrative MDM Narrative:: Scribe Attestation: 10/08/24 Patsy Michele am scribing for and in the presence of Dr. Whiting. Patient data External records reviewed:: [facility] previous records (Per chart review, patient was seen here yesterday for the same complaint and had elevated LFTs.) Clinical information provided by:: patient Social determinants that could affect healthcare access:: none Patient has the following chronic illnesses:: none How is presenting disease/condition affected by chronic disease/condition?: no chronic disease Evaluation data The following diagnostics were reviewed and interpreted by me:: lab results, radiology exam(s) and EKG tracing(s) Lab and/or radiology exams considered but not ordered:: none Interpretation Summary: CBC is normal, Total Bilirubin is elevated at 3.4 (which is higher compared to previous visit when it was 1.6), LFTs are elevated, UA shows 2+ bilirubin, according to my interpretation. EKG done at 2108, NSR, rate of 78, normal axis, no ectopy, no acute ischemia, according to my interpretation. ------ [facility] Report Signed Patient: JUMANA BANDA [facility]. Record#: [id number] Birthdate: 1975 Age/Sex: 49 / M Location: [facility] Attending Dr: Ordering Physician: Darwin Whiting MD Date of Service: 10/08/24 Procedure(s): US gall bladder Accession Number(s): [id number] cc: Harsha Garcia MD; Nima Cazares MD; Darwin Whiting MD~ Examination: Abdomen sonogram, Limited Date and time of exam: October 08, 2024 1127 hrs. Indications: Epigastric pain right upper abdominal pain beginning one month ago Technique: Real-time bhardwaj scale transabdominal sonographic images of the upper abdomen obtained. Findings: Gallbladder sludge, small gallstones No gallbladder wall edema Common bile duct 0.5 cm Pancreas obscured by bowel gas Liver 13.7 cm no liver lesions Normal hepatopedal portal venous flow Patent IVC. Impression: Cholelithiasis, negative for cholecystitis Normal common bile duct Liver normal size no focal liver lesions Dictated By: Harsha Garcia MD Signed By: <Electronically signed by Harsha Garcia MD in OV> 10/09/24 0001 ------- [facility] Preliminary Report Draft Patient: JUMANA BANDA [facility]. Record#: [id number] Birthdate: 1975 Age/Sex: 49 / M Location: [facility] Attending Dr: Ordering Physician: Date of Service: Procedure(s): Accession Number(s): cc: ~ CT angiogram of the chest, abdomen and pelvis with intravenous contrast (axial sections with sagittal and coronal reformats) October 09, 2024 at 0041 hours Clinical History: Epigastric and chest pain. Findings: The thoracic aorta demonstrates mild atheromatous calcification without evidence of dissection or aneurysm. The origins of the right brachiocephalic, left common carotid and left subclavian arteries are patent. The abdominal aorta demonstratesmild atheromatous calcification without evidence of dissection or aneurysm. The celiac, superior mesenteric, inferior mesenteric and bilateral renal arteries are patent to the extent visualized. The common iliac, external iliac and internal iliac arteries are patent bilaterally. There is no filling defect within the pulmonary artery divisions to suggest pulmonary thromboembolism. No evidence of mediastinal mass or lymphadenopathy. There is no pericardial effusion. The lungs are clear. No evidence of pleural effusion or pneumothorax. There is gallbladder wall thickening with pericholecystic fat stranding. There is no radiopaque gallstones.The liver, spleen, pancreas, adrenals and kidneys are unremarkable. No evidence of bowel obstruction. The appendix is within normal limits. There is no significant mesenteric or retroperitoneal adenopathy. The urinary bladder is unremarkable. There is no free fluid, free air or abscess. A small bowel-containing left inguinal hernia is present. A small fat- containing right inguinal hernia is present. The osseous structures are unremarkable. Impression: 1. No evidence of aortic dissection or aneurysm. 2. No evidence of pulmonary thromboembolism or other acute intrathoracic pathology. 3. Findings suggestive of acute cholecystitis. Report Electronically Signed By: Elida Vargas 10/09/2024 2:31:20 AM [EST] Medications / Prescriptions Medications or Prescriptions considered but not ordered:: none Medication administrations:: Medication Administration History Discontinued Medications Hydrocodone Bitart/Acetaminophen (Hydrocodone/Apap 7.5/325 Tablet) 1 tab PO X1 ONE Stop: 10/08/24 21:11 Last Admin: 10/08/24 21:18 Dose: 1 tab Documented By: OA Al Hydrox/Mg Hydrox/Simethicone (Mg Hyd/Al Hyd/Lew (Maalox Reg) Susp 30 Ml Udc) 30 ml PO X1 ONE Stop: 10/08/24 21:20 Last Admin: 10/08/24 21:20 Dose: 30 ml Documented By: OA Famotidine (Famotidine Inj 10 Mg/Ml Vial 2 Ml) 20 mg IVP X1 ONE Stop: 10/08/24 23:09 Last Admin: 10/08/24 23:20 Dose: 20 mg Documented By: MARLON Hydromorphone HCl (Hydromorphone Inj 2 Mg/Ml Vial) 1 mg IVP X1 ONE Stop: 10/08/24 23:08 Last Admin: 10/08/24 23:20 Dose: 1 mg Documented By: MARLON Sodium Chloride (Ns) 1,000 mls @ 999 mls/hr IV .Q1H1M ONE Stop: 10/08/24 23:36 Last Infusion: 10/09/24 00:22 Dose: Infused Documented By: Admin: 10/08/24 23:21 Dose: 999 mls/hr Documented By: MARLON Piperacillin Sod/Tazobactam (Sod 4.5 gm/ Sodium Chloride) 100 mls @ 200 mls/hr IV NOW ONE Stop: 10/09/24 03:07 Last Infusion: 10/09/24 04:25 Dose: Infused Documented By: Admin: 10/09/24 03:39 Dose: 200 mls/hr Documented By: MARLON Ondansetron HCl (Ondansetron Inj 2 Mg/Ml Inj 2 Ml) 4 mg IV X1 ONE; Protocol Stop: 10/08/24 23:08 Last Admin: 10/08/24 23:27 Dose: 4 mg Documented By: MARLON see above Consultations Consultation(s) initiated? (list below): Yes Consultation #1 (Physician, Specialty, Details): Discussed case with [Dr. Thorne] from Hospitalist service regarding admission. Discussed patients ED course, exam findings, labs, and radiology results. Requests a MRCP, despite the patient having one completed yesterday. Time: 02:39 Diagnosis Differential diagnosis abdominal pain: other (acute hepatitis A, acute hepatitis B, hepatic artery dissection, acute abscess, cholecystitis, gastritis, GERD) Most likely diagnosis given after review of the tests above:: epigastric pain, RUQ pain Admission Indicated Admission indicated?: not indicated Explain why admission is indicated or not indicated:: MRCP pending at signout. Admission Request Was there a request for admission?: No Disposition Plan Disposition Plan: other (specify) (Signed out to Dr. Salas at 0600 pending MRCP.) Discharge Plan Plan Disposition Comment: Stable at sign out. Prescriptions/Referrals Referrals: Nima Cazares MD [Primary Care Provider] - In 1 week Problem List Clinical Impression: Epigastric pain, Abdominal pain, RUQ Patient/Caregiver Discharge Instructions Print Language: Beninese
--- NOTE | 2024-10-08 22:39 | XR_ITS ---
Examination: Abdomen sonogram, Limited Date and time of exam: October 08, 2024 1127 hrs. Indications: Epigastric pain right upper abdominal pain beginning one month ago Technique: Real-time bhardwaj scale transabdominal sonographic images of the upper abdomen obtained. Findings: Gallbladder sludge, small gallstones No gallbladder wall edema Common bile duct 0.5 cm Pancreas obscured by bowel gas Liver 13.7 cm no liver lesions Normal hepatopedal portal venous flow Patent IVC. Impression: Cholelithiasis, negative for cholecystitis Normal common bile duct Liver normal size no focal liver lesions
[2024-10-08 22:51] VITALS: BP 157/104; PULSE 102; RESP 18; O2SAT 96
[2024-10-08 22:54] LABS: Magnesium 2.2 mg/dL (1.6-2.6)
[2024-10-08 23:01] VITALS: BP 192/93; PULSE 79; RESP 18; O2SAT 95
[2024-10-08 23:04] VITALS: BP 142/96; PULSE 74; RESP 18; O2SAT 94
--- NOTE | 2024-10-08 23:06 | XR_ITS ---
Examination: CTA chest, with intravenous contrast. CTA abdomen, with intravenous contrast. CTA pelvis, with intravenous contrast. 2-D sagittal and coronal reconstructions. 3-D reconstructions. Date and time of exam: October 09, 2024 1241 hours INDICATIONS: Epigastric pain chest pain shortness of breath today, clinical diagnosis aortic dissection CTDI vol (mgy) 13.6 DLP (MGycm) 135 Technique: Multiple CTA images, 2.0 mm slice thickness, obtained chest, abdomen, pelvis, with the high-resolution 64 slice scanner. 100 cc Isovue-370 is administered intravenously. Sagittal and coronal 2-D reconstructions are obtained. 3-D reconstructions, angiographic images are obtained. 3-D postprocessing, including vascular maximum intensity projections. Low dose protocols were performed. One or more of the following dose reduction techniques were used; automated exposure control, adjustment of the mA and/or KV according to patient size, use of iterative reconstruction technique. Findings: No thoracic aortic aneurysm dilatation or dissection No pulmonary artery emboli Significant calcification left anterior descending left circumflex coronary arteries Mild enlargement cardiac contour No pneumonia or pulmonary edema or pleural disease No visualized liver or splenic lesion Gallbladder wall thickening, acute cholecystitis pattern IMPRESSION: Negative for pulmonary artery emboli No thoracic aortic aneurysm dilatation or dissection Acute cholecystitis
[2024-10-08] MEDS: FAMOTIDINE INJ 10 MG/ML VIAL 2 ML 20 MG IVP (23:20)
[2024-10-08] MEDS: HYDROmorphone INJ 2 MG/ML VIAL 1 MG IVP (23:20)
[2024-10-08] MEDS: SODIUM CHLORIDE 0.9% 1000 ML 1,000 ML 999 ML IV (23:21)
[2024-10-08] MEDS: ONDANSETRON INJ 2 MG/ML INJ 2 ML 4 MG IV (23:27)
[2024-10-08 23:29] VITALS: PULSE 88
--- NOTE | 2024-10-08 23:53 | PC.NURSE ---
After US was done, pt having severe pain to upper abd.
[2024-10-09] VITALS (28 sets, daily range): BP systolic 101–145; BP diastolic 49–89; PULSE 54–85; RESP 13–23; TEMP 36.2–37.5; O2SAT 91–99
--- NOTE | 2024-10-09 | XR_ITS ---
MRI abdomen, without contrast. MRCP Date and time of exam: October 09, 2024 0647 hrs. Indications: Right upper abdominal pain with vomiting beginning yesterday, gallbladder sludge and possible small gallstones, no gallbladder wall edema Gallbladder sonogram October 08, 2024 Gallbladder wall thickening with pericholecystic fat stranding on CT abdomen study October 09, 2024 0041 hrs. Technique: Multiple axial and coronal images of the abdomen have been obtained with the Siemens 1.5T MRI scanner. Images obtained included T1 weighted transverse images, T2-weighted transverse images, T2-weighted transverse images fat-suppressed, T2 weighted haste fat suppressed transverse images, T1 weighted images, in and out of phase images, T2-weighted coronal images, breath hold, T2 weighted haze coronal images as well as T2 weighted coronal thick slab images, MRCP. Findings: No intrahepatic biliary tract dilatation There is gallbladder wall thickening and edema, axial images 17 and 18 Sludge versus tiny stones in the gallbladder Common hepatic duct common bile duct measure 2 mm with no common hepatic or common bile duct stones Pancreatic duct is not dilated No peripancreatic edema The spleen is not enlarged Aorta normal size No ascites No hydronephrosis Impression: Gallbladder wall thickening and edema most consistent with acute cholecystitis
[2024-10-09 01:18] LABS: Hepatitis A Antibody IgM Non Reactive (Non React); Hepatitis B Core Antibody IgM Non Reactive (Non React); Hepatitis B Surface Ab NonReact(Not Immune) (Immune); Hepatitis B Surface Antigen Non Reactive (Non React); Hepatitis C Antibody Non Reactive (Non React)
--- NOTE | 2024-10-09 02:31 | PRELIM_ITS ---
CT angiogram of the chest, abdomen and pelvis with intravenous contrast (axial sections with sagittal and coronal reformats) October 09, 2024 at 0041 hoursClinical History: Epigastric and chest pain.Fin dings:The thoracic aorta demonstrates mild atheromatous calcification without evidence of dissection or aneurysm. The origins of the right brachiocephalic, left common carotid and left subclavian arteri es are patent.The abdominal aorta demonstratesmild atheromatous calcification without evidence of dis section or aneurysm. The celiac, superior mesenteric, inferior mesenteric and bilateral renal arterie s are patent to the extent visualized. The common iliac, external iliac and internal iliac arteries a re patent bilaterally.There is no filling defect within the pulmonary artery divisions to suggest pul monary thromboembolism. No evidence of mediastinal mass or lymphadenopathy. There is no pericardial e ffusion.The lungs are clear. No evidence of pleural effusion or pneumothorax. There is gallbladder wa ll thickening with pericholecystic fat stranding. There is no radiopaque gallstones.The liver, spleen , pancreas, adrenals and kidneys are unremarkable.No evidence of bowel obstruction. The appendix is w ithin normal limits. There is no significant mesenteric or retroperitoneal adenopathy.The urinary gabriela dder is unremarkable. There is no free fluid, free air or abscess. A small bowel-containing left ingu inal hernia is present. A small fat-containing right inguinal hernia is present.The osseous structure s are unremarkable.Impression:1. No evidence of aortic dissection or aneurysm.2. No evidence of pulmo nary thromboembolism or other acute intrathoracic pathology.3. Findings suggestive of acute cholecyst itis. Report Electronically Signed By: Elida Vargas 10/09/2024 2:31:20 AM [EST]
[2024-10-09] MEDS: PIPER/TAZO INJ 4.5 GM in SODIUM CHLORIDE 0.9% (P) 100 ML IV (03:39)
--- NOTE | 2024-10-09 06:44 | PC.NURSE ---
Pt taken to MRI.
--- NOTE | 2024-10-09 07:13 | PD.EDADDENDU ---
Emergency Room Addendum Addendum Narrative: At 6 AM on 10/09/2024, the care of the patient was transferred from Dr. Whiting, see his notes for complete H&P and ED course. I reviewed all diagnostic test results: My interpretation of the EKG is My interpretation of the GB ultrasound is cholelithiasis, negative for cholecystitis, normal common bile duct. My interpretation of the chest/abdomen/pelvis CTA is no aneurysm, no pulmonary thromboembolism, acute cholecystitis. My interpretation of the MRCP is gallbladder wall thickening and edema most consistent with acute cholecystitis. Blood tests and urine tests At this point, diagnoses include cholecystitis. Treatment here included Significant improvement 0715: I spoke with surgeon Dr. Chacon. We discussed patients HPI, ED course, labs, and radiology results. States he will come evaluate the patient in the ED. Additionally requesting we consult with GI Dr. Kamara. 0820: I spoke with GI Dr. Kamara. Discussed patients HPI, ED course, labs, and radiology results. Reports the patient at this time needs the gallbladder taken out and does not require ERCP at this time. 0834: I spoke with residents working with Dr Yin. Discussed patients HPI, ED course, exam findings, labs, and radiology results. The hospitalist agree to accept the patient for admission. Caden Salas MD
--- NOTE | 2024-10-09 07:41 | PC.NURSE ---
PT BACK FROM MRI, DENIES ANY PAIN CURRENTLY. PT UPDATED ON POC AND AWAITING RESULTS. PT IN AGREEMENT. CALL GERBER IN [place]
--- NOTE | 2024-10-09 13:24 | ESHP_ITS ---
Documentation for date of: 10/09/24 [facility] History of Present Illness History of present illness: Mr. Padilla is a 49yo male with no significant past medical history presents to the ED for a chief complaint of worsening epigastric pain. In the last few weeks patient had repeat visits to the ED complaining of same abdominal pain and often is discharged with medications for GERD. However this time patient states his pain has worsened since he was discharged from the ED yesterday, reporting he has had 4 episodes of vomiting. Patient denies any sweating, fever, chills, cough, shortness of breath, back pain, diarrhea or any other associated symptoms. He denies any previous abdominal surgeries. No known allergies. ED course: Initial vitals include blood pressure 160/99 pulse 67 respirations 18, patient is afebrile, CBC and CMP is unremarkable except total bilirubin 3.4, AST 118, ALT 333. Hepititis panel is ordered. In the ED pt received [place], Dilaudid, simithicone, famotidine x1, 1L NS bolus, and General Surgery is consulted Images: Gallbladder ultrasound- Cholelithiasis, negative for cholecystitis, Normal common bile duct, Liver normal size no focal liver lesions CTA of chest/Abdomen/Pelvis - Negative for pulmonary artery emboli, No thoracic aortic aneurysm dilatation or dissection, Acute cholecystitis MRCP - Gallbladder wall thickening and edema most consistent with acute cholecystitis PMH: no significant history PSH: no known surgical Hx. Review of Systems Review of Systems Systems Reviewed: All systems reviewed, normal except as documented Past Medical History Past Medical History NEUROLOGIC: Negative Neurological Disorders or Seizures CARDIAC: Negative Cardiac Disorders or Congestive Heart Failure RESPIRATORY: Negative Respiratory Disorders, Chronic Obstructive Pulmonary Disease (COPD) or Asthma GENITOURINARY: Negative Renal Disease ENDOCRINE: Negative Diabetes Mellitus Type 1 or Diabetes Mellitus Type 2 HEMATOLOGIC: Negative Sickle Cell Disease OTHER HISTORY: Negative Blood Transfusions, Blood Transfusion Reaction or Anesthesia Reactions Social History SMOKING STATUS: Current some day smoker Exam Vital Signs Temp Pulse Resp BP Pulse Ox O2 Del Method 99.5 F 58 L 15 117/64 94 L Room Air 10/09/24 12:00 10/09/24 12:00 10/09/24 10:00 10/09/24 12:00 10/09/24 12:00 10/09/24 12:00 Narrative Exam GENERAL: A&Ox3 . Awake, Not in acute distress NEURO: no focal neurological deficits HEENT: Atraumatic, Normocephalic. mucous membranes moist. Eyes open, symmetrical, & clear HEART: Normal Heart Sounds LUNGS: Clear to auscultation with no wheezing or crackles. ABDOMEN: soft, non-distended, diffuse mild tenderness, bowel sounds heard, no guarding or rebound tenderness SKIN: No Rash or ecchymoses EXTREMITIES: No edema, tenderness, able to move all 4 extremities, pedal pulses palpated Results: Labs 10/10/24 04:34 10/10/24 04:34 Labs: Short CBC 10/08/24 Range/Units 21:13 WBC 10.1 (3.8-10.6) Thou/mm3 Hgb 14.4 (13.5-16.0) g/dL Hct 42.6 (41.0-53.0) % Plt Count 264 (140-440) Thou/mm3 BMP 10/08/24 21:13 Sodium 139 Potassium 3.5 Chloride 102 Carbon Dioxide 28.9 BUN 13 Creatinine 1.0 Glucose 111 H Calcium 9.7 Cardiac Enzymes 10/08/24 Range/Units 21:13 Troponin I < 0.020 (0.0-0.045) ng/mL Liver Function 10/08/24 Range/Units 21:13 Total Bilirubin 3.4 H D (0.3-1.2) mg/dL AST 118 H (0-34) U/L ALT 333 H (10-49) U/L Alkaline Phosphatase 209 H D (46-116) U/L Albumin 4.9 (3.5-5.0) gm/dL Urine 10/08/24 Range/Units 21:35 Urine Color Drk-Yellow A (Lt Yel-Yel) Urine Clarity Clear (Clear/Hazy) Urine pH 6.0 (5.0-7.0) Ur Specific [place] 1.026 (1.001-1.035) Urine Protein Trace (Neg - Trace) Urine Glucose (UA) Negative (Negative) Quality Measures Quality Measures none Medications Home Medications and Allergies Allergies Allergy/AdvReac Type Severity Reaction Status Date / Time No Known Allergies Allergy Verified 09/19/24 17:54 Visit Medications Acetaminophen (Acetaminophen 325 Mg Tablet) 650 mg PO Q6H PRN PRN Reason: Fever >101.5 Stop: 11/08/24 10:32 Heparin Sodium (Porcine) (Heparin Sod Inj 5000 Unit/Ml Vial) 5,000 unit SC Q8HR [facility] Stop: 10/23/24 13:59 Sodium Chloride (Ns) 1,000 mls @ 120 mls/hr IV .Q8H20M [facility] Stop: 11/08/24 10:44 Ondansetron HCl (Ondansetron Inj 2 Mg/Ml Inj 2 Ml) 4 mg IV Q6H PRN; Protocol PRN Reason: NAUSEA OR VOMITING Stop: 11/08/24 10:32 Pantoprazole Sodium (Pantoprazole Inj 40 Mg Vial) 40 mg IVP QDAY [facility] Stop: 11/09/24 08:59 Discontinued Medications Hydrocodone Bitart/Acetaminophen (Hydrocodone/Apap 7.5/325 Tablet) 1 tab PO X1 ONE Stop: 10/08/24 21:11 Last Admin: 10/08/24 21:18 Dose: 1 tab Al Hydrox/Mg Hydrox/Simethicone (Mg Hyd/Al Hyd/Lew (Maalox Reg) Susp 30 Ml Udc) 30 ml PO X1 ONE Stop: 10/08/24 21:20 Last Admin: 10/08/24 21:20 Dose: 30 ml Famotidine (Famotidine Inj 10 Mg/Ml Vial 2 Ml) 20 mg IVP X1 ONE Stop: 10/08/24 23:09 Last Admin: 10/08/24 23:20 Dose: 20 mg Hydromorphone HCl (Hydromorphone Inj 2 Mg/Ml Vial) 1 mg IVP X1 ONE Stop: 10/08/24 23:08 Last Admin: 10/08/24 23:20 Dose: 1 mg Sodium Chloride (Ns) 1,000 mls @ 999 mls/hr IV .Q1H1M ONE Stop: 10/08/24 23:36 Last Infusion: 10/09/24 00:22 Dose: Infused Piperacillin Sod/Tazobactam (Sod 4.5 gm/ Sodium Chloride) 100 mls @ 200 mls/hr IV NOW ONE Stop: 10/09/24 03:07 Last Infusion: 10/09/24 04:25 Dose: Infused Ondansetron HCl (Ondansetron Inj 2 Mg/Ml Inj 2 Ml) 4 mg IV X1 ONE; Protocol Stop: 10/08/24 23:08 Last Admin: 10/08/24 23:27 Dose: 4 mg Assessment & Plan Plan Mr. Padilla is a 49yo male with no significant past medical history presents to the ED for a chief complaint of worsening epigastric pain. In the last few weeks patient had repeat visits to the ED complaining of same abdominal pain and often is discharged with medications for GERD. However this time patient states his pain has worsened since he was discharged from the ED yesterday, reporting he has had 4 episodes of vomiting. Patient denies any sweating, fever, chills, cough, shortness of breath, back pain, diarrhea or any other associated symptoms. #Epigastric Pain secondary to #acute Cholecystitis #Cholelithiasis #transiminitis -Pt complains of epigastric pain with associated Nausea and vomitting -total bilirubin 3.4, AST 118, ALT 333 likely in the setting of cholecystitis -Gallbladder ultrasound- Cholelithiasis, negative for cholecystitis, Normal common bile duct, Liver normal size no focal liver lesions CTA of chest/Abdomen/Pelvis - Negative for pulmonary artery emboli, No thoracic aortic aneurysm dilatation or dissection, Acute cholecystitis MRCP - Gallbladder wall thickening and edema most consistent with acute cholecystitis Plan: -Hepatitis panel ordered -maintenance fluid -pain management ordered -Will continue to monitor liver enzymes, daily CBC and CMP -Zosyn 10/09- -surgery consulted, Pt will likely undergo surgery today -resume diet post surgery Health Maintenance Disposition: Medsurg DVT Prophylaxis: will hold in light of surgery GI Prophylaxis: Pantoprozol-40 IV Qday Diet: NPO Lines: Peripheral lines Code status: Full Assessment and plan discussed with my senior resident Dr. Montaño & attending physician Dr. Annamaria Ríos (PGY-1)- Internal medicine resident Attending Provider Attestation/Addendum I reviewed labs, imaging, EKG, home medications and prior available records. Face to face evaluation was performed by me. I have personally examined the patient and discussed assessment and plan with the IM team. I reviewed the resident note and agree with the plan with exceptions as below. Acute cholecystitis Transaminitis Epigastric pain MRCP showed no common bile duct dilation Consulted general surgery Start IV Zosyn Management of pain as needed. Requiring IV opiates Management of nausea/vomiting as needed Trend LFTs N.p.o. for possible OR
--- NOTE | 2024-10-09 14:14 | ESCONSULT_ITS ---
HPI Consult details Consult date: 10/09/24 Reason for consultation narrative: The patient was seen in consultation for acute cholecystitis with cholelithiasis History of present illness: History of present illness revealed that the patient has had this pain repeatedly since the beginning of this year. He came to the emergency room and was discharged. His pain was in the epigastric region radiating to the back. Patient denies any history of jaundice fever or chills. Patient was seen by me 2 days ago briefly in the emergency room when he was admitted for the similar problem. He was found to have elevated liver enzymes and it was felt that he might of passed a stone in the common bile duct. However patient's pain got better and therefore he went home. Yesterday starting around 4 or 5:00 he experienced pain he came to the emergency room. He has been in the emergency room and is undergone extensive diagnostic text including repeat ultrasound CT scan and another MRCP. The MRCP failed to show any stones but the gallbladder ultrasound showed small gallstones. CT scan showed acute cholecystitis patient is therefore seen on consultation. Patient denies any major medical illness. No history of Past Medical History Past Medical History NEUROLOGIC: Negative Neurological Disorders CARDIAC: Negative Cardiac Disorders or Congestive Heart Failure RESPIRATORY: Negative Respiratory Disorders, Chronic Obstructive Pulmonary Disease (COPD) or Asthma GENITOURINARY: Negative Renal Disease ENDOCRINE: Negative Diabetes Mellitus Type 1 or Diabetes Mellitus Type 2 HEMATOLOGIC: Negative Sickle Cell Disease Social History SMOKING STATUS: Current some day smoker Meds Home Medications and Allergies Allergies Allergy/AdvReac Type Severity Reaction Status Date / Time No Known Allergies Allergy Verified 09/19/24 17:54 Exam Vital Signs Temp Pulse Resp BP Pulse Ox O2 Del Method 99.5 F 58 L 15 117/64 94 L Room Air 10/09/24 12:00 10/09/24 12:00 10/09/24 10:10/09/24 12:00 10/09/24 12:00 10/09/24 12:00 Narrative Exam Physical examination revealed 49-year-old male who is 5 foot 10 inches tall weighing 220 pounds his vital signs are normal other than low-grade fever of 99.5 Constitutional Constitutional: mild distress Routine Abdominal Exam Comments: Examination of the abdomen showed mild tenderness in the epigastric region. Rest of the abdomen is unremarkable. Patient also has a large left inguinal hernia which he has had it for the past few months and it is bothering him also Routine Rectal Exam Comments: Deferred Routine Exam Comments: Deferred Results Results: Laboratory Laboratory Narrative: Patient's WBC is within normal limits. His liver enzymes showed bilirubin up to 3.4 while it was 1.62 days ago. His AST is down from last 2 days ago from 4 42- 1 18 AST is 333 compared to 3 6548 hours ago but his alkaline phosphatase is slightly up from 142 days ago to 209. Results: Imaging Imaging narrative: Ultrasound showed small gallstones and sludge. MRCP is negative for any common bile duct stone CT scan showed acute cholecystitis Assessment & Plan Additional Assessment Additional comments: Impression: Acute calculus cholecystitis Possible common bile duct stone most likely passed a #3 Plan Plan: I talked with the patient telling that he will require laparoscopic cholecystectomy. Consultation made with Dr. Kamara by the ER physicians and he is strongly advised proceeding with cholecystectomy and not worry about common bile duct stone at this time. He did not want to do an ERCP because of the negative MRCP. I advised the patient to undergo laparoscopic cholecystectomy and possible open cholecystectomy. Since the pain has been going on for almost 2 weeks patient may require open cholecystectomy. The risks of the procedure including potential complications like bile duct injury bleeding etc. were discussed with the patient. Patient also was told that he may require ERCP postoperatively if the liver enzymes started rising. He is aware. He will be taken to the operating room today on an emergency basis.
--- NOTE | 2024-10-09 16:42 | SUR.PHASEI ---
pt received pac[facility] [place] 5. oral airway in place. vss. breathing even and unlabored. dressings to abdomen cdi x4. mathew drain in place to right side with drain sponge and tape. report from nurse marvin. belting inspector student mark and dr dejesus.
--- NOTE | 2024-10-09 16:58 | SUR.OPER ---
IV Intake: 800 ml EBL: 25 ml
--- NOTE | 2024-10-09 17:08 | ESOP_ITS ---
Date of Procedure 10/09/24 Pre Op Diagnosis Acute cholecystitis with cholelithiasis Post Op Diagnosis Same with extensive inflammation of the gallbladder Procedure Laparoscopic cholecystectomy Findings Patient had both acute on chronic inflammation of the gallbladder making it extremely difficult to dissect Procedure Description After endotracheal anesthesia was given the patient was placed in supine position and the abdomen was prepped with chloroprep solution and draped in a sterile manner. After time out was performed I injected a few cc of of half percent Marcaine with epinephrine below the umbilicus and I made an incision for about 3 cm in length. The fascia was cleaned and Veress needle was inserted to create a pneumoperitoneum up to 15 mmHg. Then introduced a 12 mm trocar and a 10 mm camera through the fascia and I inspected the intra-abdominal organs as well as the gallbladder and the liver. Another 5 mm trocar was inserted in the epigastric region under direct vision after injecting some local anesthesia. At this time the patient was kept in reverse Trendelenburg position with the left lateral tilt. The third 5 mm trocar was inserted over the mid axillary line under direct vision and a Bonifacio and Marcie grasper was used to hold the fundus of the gallbladder. Fundus of the gallbladder could not be seen initially because it is covered with omentum which were very dense. After releasing the omentum the retraction was carried out by the ex assistant/program director moving the fundus of the gallbladder towards the right shoulder of the patient to create enough traction. I placed a another 5 mm trocar in the midaxillary line just lateral to the rectus muscle under direct vision. I used a fenestrated grasper to retract the neck of the gallbladder laterally towards the patient's right hip. The Calot's triangle was exposed and I achieved the critical view of safety as follows: I dissected out the fatty tissue from the hepatocystic triangle and cleared this area. I also dissected inferior and posterior to the gallbladder to identify the cystic duct and the gallbladder wall. The junction of the cystic duct with the common bile duct was seen. Then superiorly I dissected along the cystic plate up to lower one third third of the gallbladder to lift the gallbladder from the liver. At this time I confirmed that only 2 structures entering the gallbladder were cystic artery and the cystic duct. The common duct was seen distally but no dissection was carried out around the duct. I did not see any need for operative cholangiogram in this patient. The cystic duct was clipped doubly and then divided and cystic artery was similarly dealt with. Then the gallbladder was removed from the liver bed using Harmonic juhi to control the small blood vessels as the dissection proceeded. The gallbladder tore especially near the fundic region and multiple small stones came out which was aspirated. The thickened gallbladder was then removed then the gallbladder was from the liver bed completely and delivered through the umbilical port using an Endopouch. The liver bed was coagulated with cautery to obtain satisfactory hemostasis. The trocars were pulled out from the abdominal cavity and the fascia at the umbilical incision was closed with interrupted 0 Ethibond. The epigastric port which was a 12 mm was closed with Dez Marshall device and 0 Ethibond. Subcutaneous tissues was closed with 3-0 chromic and injected a few cc of half percent Marcaine with epinephrine and the skin was closed with interrupted 4-0 nylon stitches at all the trocar sites. Dressing was applied with 2 x 2 and Tegaderm. Patient tolerated the procedure well and returned to recovery room in stable condition. Anesthesia GETA Pathology / specimen Other (Gallbladder and the stones) IVF Infused 800 Estimated Blood Loss 75 Condition Stable Disposition PACU Surgeon Moris Kim MD Surgical Staff Operation Date: 10/09/24 14:45 Case Staff Anesthesiologist: Claudy Esparza Anesthesiologist: Darwin Hilton RN First Assistant: Ev Vincent RN First Assistant: Jane López
--- NOTE | 2024-10-09 17:12 | SUR.PHASEI ---
oral airway out by patient. vss. breathing even and unlabored on room air. pt awake, alert and chen well. denies pain and nausea.
--- NOTE | 2024-10-09 20:30 | SUR.PHASEI ---
report called to matthew on ms. pt transported to room via bed with all belongings. pt alert and oriented. tolerating po fluids. dressings remain cdi. vss. breathing even and unlabored on room air. denies pain and nausea.
[2024-10-09] MEDS: HEPARIN SOD INJ 5000 UNIT/ML VIAL SC (21:48)
[2024-10-09] MEDS: SODIUM CHLORIDE 0.9% 1000 ML 1,000 ML 120 ML IV (21:48)
[2024-10-09] MEDS: PIPER/TAZO 3.375 GM 50 ML IV (21:49)
[2024-10-10] VITALS (7 sets, daily range): BP systolic 107–128; BP diastolic 56–75; PULSE 57–86; RESP 15–95; TEMP 36.1–36.7; O2SAT 94–98
[2024-10-10] MEDS: KETOROLAC INJ 30 MG/ML VIAL 15 MG IVP (01:32)
[2024-10-10] MEDS: PIPER/TAZO 3.375 GM 50 ML IV ×2 (05:07→13:53)
[2024-10-10] MEDS: HEPARIN SOD INJ 5000 UNIT/ML VIAL SC ×2 (05:07→13:53)
[2024-10-10] MEDS: SODIUM CHLORIDE 0.9% 1000 ML 1,000 ML 120 ML IV (06:22)
[2024-10-10 06:26] LABS: Basophils % (Auto) 0 % (0-2.5); Eosinophils % (Auto) 0 % (0-10); Hematocrit 37.3 % (41.0-53.0); Hemoglobin 12.2 g/dL (13.5-16.0); Immature Granulocytes % (Auto) 0 % (0-0); Immature Granulocytes Auto 0.02 Thou/mm3 (0.00-0.00); Lymphocytes # (Auto) 0.6 Thou/mm3 (1.0-4.8); Lymphocytes % (Auto) 7 % (10-50); Mean Corpuscular HGB Conc 32.7 g/dl (31.0-37.0); Mean Corpuscular Hemoglobin 28.5 pg (25.0-35.0); Mean Corpuscular Volume 87 fL (80-100); Monocytes # (Auto) 0.5 Thou/mm3 (0.0-0.8); Monocytes % (Auto) 6 % (0-12); Neutrophils # (Auto) 8.1 Thou/mm3 (1.8-7.7); Neutrophils % (Auto) 87 % (37-80); Nucleated Red Blood Cell % 0 /100 WBC (0); Platelet Count 265 Thou/mm3 (140-440); RDW Standard Deviation 43.6 fL (35.1-43.9); Red Blood Count 4.28 Miln/mm3 (4.50-5.90); White Blood Count 9.3 Thou/mm3 (3.8-10.6)
[2024-10-10 07:02] LABS: Alanine Aminotransferase 233 U/L (10-49); Albumin, Serum 4.1 gm/dL (3.5-5.0); Alkaline Phosphatase 181 U/L (46-116); Anion Gap 8 (7-16); Aspartate Amino Transferase 80 U/L (0-34); BUN/Creatinine Ratio 14 Ratio (12-20); Bilirubin,Total 1.7 mg/dL (0.3-1.2); Blood Urea Nitrogen 14 mg/dL (9-23); Calcium 8.8 mg/dL (8.3-10.6); Calcium (Corrected) 8.8 mg/dL (8.5-10.1); Chloride 106 mMol/L (98-107); Globulin 2.1 gm/dL (2.3-3.5); Glucose 112 mg/dL (74-106); Osmolality,Calculated 277 (275-295); Phosphorous 3.1 mg/dL (2.4-5.1); Potassium 3.8 mMol/L (3.4-5.1); Sodium 138 mMol/L (136-145); Thyroid Stimulating Hormone 0.26 uIU/mL (0.55-4.78); Total Protein 6.2 gm/dL (5.7-8.2); eGFR > 60 See Note
[2024-10-10] MEDS: PANTOPRAZOLE INJ 40 MG VIAL IVP (08:43)
[2024-10-10] MEDS: MORPHINE SULF INJ 10 MG/ML VIAL 4 MG IVP ×2 (08:51→17:29)
--- NOTE | 2024-10-10 12:12 | ESPR_ITS ---
Documentation for date of: 10/10/24 Subjective Subjective Brief History: History of present illness revealed that the patient has had this pain repeatedly since the beginning of this year. He came to the emergency room and was discharged. His pain was in the epigastric region radiating to the back. Patient denies any history of jaundice fever or chills. Patient was seen by me 2 days ago briefly in the emergency room when he was admitted for the similar p roblem. He was found to have elevated liver enzymes and it was felt that he might of passed a stone in the common bile duct. However patient's pain got better and therefore he went home. Yesterday starting around 4 or 5:00 he experienced pain he came to the emergency room. He has been in the emergency room and is undergone extensive diagnostic text including repeat ultrasound CT scan and another MRCP. The MRCP failed to show any stones but the gallbladder ultrasound showed small gallstones. CT scan showed acute cholecystitis patient is therefore seen on consultation. Patient denies any major medical illness. No history of Narrative: The patient is doing well since difficult laparoscopic cholecystectomy due to extensive inflammation Exam Vital Signs Temp Pulse Resp BP Pulse Ox O2 Del Method O2 Flow Rate 97.5 F 86 18 121/67 94 L Room Air 6 10/10/24 07:47 10/10/24 11:21 10/10/24 11:21 10/10/24 07:47 10/10/24 07:47 10/10/24 07:47 10/09/24 16:57 His vital signs are normal Routine Abdominal Exam Comments: Abdominal examination shows flat abdomen. JAMES drain is minimal and serous and not showing any bile Results Results: Laboratory Laboratory Narrative: Lab results are within normal limits and the bilirubin and transaminases are decreasing Assessment & Plan Assessment Additional comments: Impression: Stable postoperative course following laparoscopic cholecystectomy Plan Plan: We shall discharge the patient today with the Jimmie-Collier drain in place and will follow him up in office in few days. Patient will be given antibiotics p.o. along with [place] Procedures Procedures Laparoscopic cholecystectomy
--- NOTE | 2024-10-10 15:31 | PC.NURSE ---
Notified Dr. Yin discharge DC orders put in by Dr. Kim. If patient tolerates lunch and dinner patient will discharge home.
--- NOTE | 2024-10-10 16:10 | ESDS_ITS ---
Planned Discharge Date 10/10/24 DS: Providers Provider Date of admission: 10/09/24 10:28 Primary care physician: Nima Cazares MD Admitting Provider: Carlos Yin MD Attending Provider on Admission: Carlos Yin MD Consults: 10/09/24 07:22 Consult to General Surgery Stat Comment: Cholecystitis Consulting Provider: Moris Kim Attending Provider on DC: Dr. Annamaria MD Discharging Provider: Hernan Montaño MD DS: Diagnosis Problem List Completed Was Problem List Reviewed/Reconciled?: Yes Hospital Course Hospital Course Hospital course: Mr. Padilla is a 49yo male with no significant past medical history presents to the ED for a chief complaint of worsening epigastric pain. In the last few weeks patient had repeat visits to the ED complaining of same abdominal pain and often is discharged with medications for GERD. Patient was discharged from the ED recently, has had multiple healthcare encounters for intractable abdominal pain and nausea vomiting. Had twice negative MRCP exams, noted elevation of liver enzymes and acute elevation in total bilirubin. ER contacted submarine advisory team watch officer Dr. Kamara who recommended general surgery consult, as no concern for CBD stone or cholangitis. General surgeon Dr. Chacon was consulted who evaluated the patient, patient was taken to the operating room for laparoscopic cholecystectomy. Operative findings include omentum wrapped around the gallbladder, findings consistent with acute and chronic inflammatory changes of the gallbladder. Postprocedure noted to have decreased levels of total bilirubin and liver enzymes. Per Dr. Chacon patient may need an ERCP at a later date if continued elevation of liver enzymes or bilirubin. Patient was evaluated postop, able to tolerate p.o. diet, received IV antibiotics, will be discharged on p.o. antibiotics per general surgery commendations. The patient is stable, ambulatory, afebrile and tolerating Per oral medications at the time of discharge. The patient understood and agreed to the treatment plan. Recommend to follow-up with your primary care physician within 5 days of discharge from hospital, follow-up with general surgeon Dr. Chacon on outpatient basis, for removal of the JAMES drain. In case of worsening symptoms please turn to the emergency room, patient is okay to shower, but recommended to keep the wound dry and dressing clean. #Acute cholecystitis s/p laparoscopic cholecystectomy #Acute transaminitis #Hyperbilirubinemia Plan of care discussed with my attending Sabra pgy2 Time Spent with Patient Time attestation: Total time spent providing and/or coordinating discharge services: 30 min Exam Vital Signs Temp Pulse Resp BP Pulse Ox O2 Del Method O2 Flow Rate 97.3 F 57 L 15 128/64 96 Room Air 6 10/10/24 12:00 10/10/24 12:00 10/10/24 12:00 10/10/24 12:00 10/10/24 12:00 10/10/24 12:00 10/09/24 16:57 Narrative Exam GENERAL: A&Ox3 . Awake, Not in acute distress NEURO: no focal neurological deficits HEENT: Atraumatic, Normocephalic. mucous membranes moist. Eyes open, symmetrical, & clear HEART: Normal Heart Sounds LUNGS: Clear to auscultation with no wheezing or crackles. ABDOMEN: Patient has a JAMES drain, minimal output, surgical dressing in place, which is dry and clean. SKIN: No Rash or ecchymoses EXTREMITIES: No edema, tenderness, able to move all 4 extremities, pedal pulses palpated Discharge Plan Plan Patient Disposition: HOME (Self Care) Disposition Comment: Stable at sign out. Care Plan Goals: Recommend to follow-up with your primary care physician within 5 days of discharge from hospital, follow-up with general surgeon Dr. Chacon on outpatient basis, for removal of the JAMES drain. In case of worsening symptoms please turn to the emergency room, patient is okay to shower, but recommended to keep the wound dry and dressing clean. Prescriptions/Referrals Prescriptions/Med Rec: New amoxicillin-pot clavulanate 875-125 mg tablet 1 tab PO Q12H Qty: 10 0RF hydrocodone-acetaminophen 5-325 mg tablet 1 tab PO Q6H MDD 4 to Qty: 20 0RF ketorolac 10 mg tablet 10 mg PO Q8H PRN (Reason: pain) Qty: 14 0RF Rx Instructions: maximum total duration of 5 days from all oral, intranasal, or parenteral formulations Referrals: Moris Kim MD [Physician] - Nima Cazares MD [Primary Care Provider] - Patient/Caregiver Discharge Instructions Education Materials: Surgery Anesthesia After, Treating Gallstones, Preventing Surgical Site Infections Print Language: Romanian Activity Restrictions/Additional Instructions: Diet as tolerated Remove dressing tomorrow and leave it open May shower with the JAMES in place Empty JAMES drain about 3 times a day and record the amount Take antibiotics and pain medication as prescribed Follow-up in my office on Saturday. Call [phone] for an appointment time Stand Alone Forms: [employer] Award Info., Patient Portal Info Letter Discharge Order Discharge Orders: Discharge (Routine); Ordered 10/10/24 Ordered By: Moris Kim Quality Discharge Quality Measures VTE prophylaxis Attestestation MD Attestation I reviewed labs, imaging, EKG, home medications and prior available records. Face to face evaluation was performed by me. I have personally examined the p atient and discussed assessment and plan with the IM team. I reviewed the resident note and agree with the plan with exceptions as below. Acute cholecystitis Transaminitis Epigastric pain MRCP showed no common bile duct dilation Status post laparoscopic cholecystectomy. Status post drain in place Trend LFTs: Downtrending Continue management of pain as needed Keep drain in place until seen by surgery as outpatient Time spent is 40 minutes. More than 50% of the time was spent on patient education and coordination of care.
--- NOTE | 2024-10-10 17:46 | PC.NURSE ---
Addendum entered by Liane Huizar RN 10/10/24 17:47: WRONG PATIENT. Original Note: PATIENT EATING DINNER WILL LET HIM EAT. ALL SUPPLIES ARE READY AT BEDSIDE FOR DRESSING CHANGE. WILL CONTINUE TO MONITOR PATIENT.
[2024-10-12 07:01] LABS: Hepatitis A Antibody, Total* REACTIVE; Hepatitis B Core Ab,Total* NONREACTIVE; Hepatitis Be Antibody* NONREACTIVE; Hepatitis Be Antigen* NONREACTIVE
== END 2024-10-10 18:38 | disposition home or self-care (01) | DRG 419 ==
LOC: SERX 10-09 08:35 → SERHOLD 10-09 11:24 → S3SX 10-09 20:37
PROVIDERS: Emergency Medicine; Physician Assistant; Surgery; Admitting Provider Student in an Organized Health Care Education/Training Program; Emergency Provider Emergency Medicine; PCP Family Medicine; Visit Provider Student in an Organized Health Care Education/Training Program
PROC: 0FT44ZZ Resection of Gallbladder, Percutaneous Endoscopic Approach (ICD-10-PCS; CPT 47562; principal; 2024-10-09 14:30)
DX: K80.12 Calculus of gallbladder with acute and chronic cholecystitis without obstruction (principal); F17.210 Nicotine dependence, cigarettes, uncomplicated
CPT/HCPCS: 36415; 71275; 74174; 76705; 80053; 81001; 83690; 83735; 84100; 84443; 84484; 85025; 86704; 86705; 86706; 86707; 86708; 86709; 86803; 87340; 87350; 93005; 96361; 96365; 96375; 99285; A4217; A4649; J0690; J1100; J1643; J1885; J2270; J2405; J2470; J2543; J2704; J3010; J3490; J7030; Q9967; S8037; 74181; A9270; J1596

== ENCOUNTER 2025-03-24 09:10 | Emergency (ER) | payer MEDICAID, SELFPAY ==
[2025-03-24 09:24] VITALS: BP 149/91; PULSE 69; RESP 19; TEMP 36.9; O2SAT 97; BMI 35.4
[2025-03-24] MEDS: dexAMETHasone 4 MG TABLET 10 MG PO (09:44)
[2025-03-24] MEDS: KETOROLAC INJ 30 MG/ML VIAL IM (09:45)
--- NOTE | 2025-03-24 09:55 | PD.EDBACK ---
ED Back Injury Pain RME/HPI General Chief Complaint: Back Pain/Injury Stated Complaint: Right side lower back pain X 10 days Time Seen by Provider: 03/24/25 09:16 Arrival date/time: 03/24/25 09:10 49-year-old male presents to the emerged part today for complaints of right buttock radiating down the right leg patient reports symptoms onset 10 days ago Limitations: no limitations Related Data Previous Rx's ?Medication ?Instructions ?Recorded amoxicillin 875 mg-potassium 1 tab PO Q12H #10 tabs 10/10/24 clavulanate 125 mg tablet hydrocodone 5 mg-acetaminophen 325 1 tab PO Q6H #20 tabs 10/10/24 mg tablet ketorolac 10 mg tablet 10 mg PO Q8H PRN pain #14 tabs 10/10/24 cyclobenzaprine 10 mg tablet 10 mg PO TID PRN muscle spasm 10 03/24/25 days #30 tab-caps ibuprofen 800 mg tablet 800 mg PO TID PRN pain #30 tabs 03/24/25 Allergies Allergy/AdvReac Type Severity Reaction Status Date / Time No Known Allergies Allergy Verified 03/24/25 09:15 Review of Systems Review of Systems Systems Reviewed: All systems reviewed, normal except as documented Constitutional Constitutional: Reports system reviewed and no additional complaints, except as documented, Denies fever(s) and Denies headache(s) Eyes Eyes: Reports system reviewed and no additional complaints, except as documented and Denies blurry vision ENT Ears, Nose, Mouth, and Throat: Reports system reviewed and no additional complaints, except as documented, Denies headache(s), Denies nasal congestion and Denies nasal discharge Cardiovascular Cardiovascular: Reports system reviewed and no additional complaints, except as documented, Denies chest pain and Denies dyspnea Respiratory Respiratory: Reports system reviewed and no additional complaints, except as documented, Denies chest congestion, Denies cough and Denies dyspnea Gastrointestinal Gastrointestinal: Reports system reviewed and no additional complaints, except as documented and Denies abdominal pain Musculoskeletal Musculoskeletal: Reports system reviewed and no additional complaints, except as documented, Denies numbness, Reports stiffness and Denies tingling Integumentary/Breasts Skin/Breast: Reports system reviewed and no additional complaints, except as documented and Denies rash Neurologic Neurologic: Reports system reviewed and no additional complaints, except as documented, Reports as per HPI, Denies headache(s), Denies numbness and Denies tingling Past Medical History Past Medical History NEUROLOGIC: Negative Neurological Disorders or Seizures CARDIAC: Positive Hypertension; Negative Cardiac Disorders or Congestive Heart Failure RESPIRATORY: Negative Chronic Obstructive Pulmonary Disease (COPD) or Asthma GENITOURINARY: Negative Renal Disease ENDOCRINE: Negative Diabetes Mellitus Type 1 or Diabetes Mellitus Type 2 HEMATOLOGIC: Negative Sickle Cell Disease OTHER HISTORY: Negative Blood Transfusions, Blood Transfusion Reaction or Anesthesia Reactions Social History SMOKING STATUS: Current some day smoker ED Exam General Limitations: Present no limitations General appearance: Present alert and in no apparent distress Head Head exam: Present atraumatic, normocephalic and normal inspection Eye Eye exam: Present normal appearance, PERRL and EOMI; Absent conjunctival injection ENT ENT exam: Present normal exam, normal oropharynx and mucous membranes moist Neck Neck exam: Present normal inspection, full ROM and trachea midline Chest Chest inspection: Present normal inspection and symmetric chest wall rise Respiratory Respiratory exam: Present normal lung sounds bilaterally Cardiovascular Cardiovascular exam: Present regular rate, normal rhythm and normal heart sounds Abdominal Exam Abdominal exam: Present soft and normal bowel sounds; Absent distention, tenderness, guarding, rebound or rigidity Extremities Exam Extremities exam: Present normal inspection, full ROM and tenderness (Right buttock pain radiating down the right leg) Back Exam Back exam: Present normal inspection and full ROM Neurological Exam Neurological exam: Present alert, oriented X3, CN II-XII intact, normal gait and reflexes normal; Absent motor sensory deficit Psychiatric Psychiatric exam: Present normal affect and normal mood Skin Skin exam: Present warm, dry, intact and normal color Course Quality Measures none Orders Category Date Time Status Ketorolac Inj [Toradol Inj] Med 03/24/25 09:36 Discontinued 30 mg IM X1 ONE dexAMETHasone TAB [Decadron Tab] Med 03/24/25 09:36 Discontinued 10 mg PO X1 ONE Vital Signs Vital signs: Vital Signs Temperature 98.4 F 03/24/25 09:24 Pulse Rate 69 03/24/25 09:24 Respiratory Rate 19 03/24/25 09:24 Blood Pressure 149/91 H 03/24/25 09:24 Pulse Oximetry (%) 97 03/24/25 09:24 Oxygen Delivery Method Room Air 03/24/25 09:24 O2 saturation 97% room air within normal limits Back Pain / Injury MDM Narrative MDM Narrative:: 49-year-old male presents to the emerged part today for complaints of right buttock radiating down the right leg patient reports symptoms onset 10 days ago On exam patient well-appearing patient does not appear ill or toxic no acute distress On exam patient has positive static notch tenderness positive straight leg test Symptoms highly consistent with sciatica patient be treated for sciatica Patient discharged home in no distress to follow-up with primary care doctor in the next 24 to 48 hours and for any worsening symptoms to return to the ER immediately Patient data External records reviewed:: [facility] previous records Clinical information provided by:: patient Social determinants that could affect healthcare access:: none Patient has the following chronic illnesses:: N/A How is presenting disease/condition affected by chronic disease/condition?: no chronic disease Evaluation data The following diagnostics were reviewed and interpreted by me:: other (specify) (N/A) Lab and/or radiology exams considered but not ordered:: Consider not ordered Interpretation Summary: N/A Medications / Prescriptions Medications or Prescriptions considered but not ordered:: Given Medication administrations:: Medication Administration History Discontinued Medications Dexamethasone (Dexamethasone 4 Mg Tablet) 10 mg PO X1 ONE Stop: 03/24/25 09:37 Last Admin: 03/24/25 09:44 Dose: 10 mg Documented By: CRESCENCIO Ketorolac Tromethamine (Ketorolac Inj 30 Mg/Ml Vial) 30 mg IM X1 ONE Stop: 03/24/25 09:37 Last Admin: 03/24/25 09:45 Dose: 30 mg Documented By: CRESCENCIO Given Consultations Consultation(s) initiated? (list below): No Diagnosis Differential diagnosis back pain/injury: lumbar radiculopathy, sciatica and strain of lumbar region Most likely diagnosis given after review of the tests above:: Sciatica right-sided Admission Indicated Admission indicated?: not indicated Admission Request Was there a request for admission?: No Disposition Plan Disposition Plan: Discharge Discharge Attestation Discharge Attestation: The patient and all family members were given an opportunity to ask questions and understood the discharge instructions. Discharge instructions specifically effects, indications for sooner follow up or return to the emergency department, and the expected course of current diagnosis. Patient condition: Stable Discharge Plan Plan Patient Disposition: HOME (Self Care) Discharge Disposition comment: Stable Prescriptions/Referrals Prescriptions/Med Rec: New cyclobenzaprine 10 mg tablet 10 mg PO TID PRN (Reason: muscle spasm) 10 Days Qty: 30 0RF ibuprofen 800 mg tablet 800 mg PO TID PRN (Reason: pain) Qty: 30 0RF No Action amoxicillin-pot clavulanate 875-125 mg tablet 1 tab PO Q12H Qty: 10 0RF hydrocodone-acetaminophen 5-325 mg tablet 1 tab PO Q6H MDD 4 to Qty: 20 0RF ketorolac 10 mg tablet 10 mg PO Q8H PRN (Reason: pain) Qty: 14 0RF Rx Instructions: maximum total duration of 5 days from all oral, intranasal, or parenteral formulations Problem List Clinical Impression: Right sided sciatica Patient/Caregiver Discharge Instructions Education Materials: ED Sciatica Additional Instructions: Please follow up with your primary care doctor in the next 24-48hrs for any worsening symptoms return here immediately Print Language: Congolese Stand Alone Forms: [employer] Award Info., Work/School Release, Patient Portal Info Letter PA/WAREHOUSE LABORER Supervising Physician PA/WAREHOUSE LABORER Supervising Physician: Dr. ho
== END 2025-03-24 10:00 | disposition home or self-care (01) ==
LOC: SERX 09:42
PROVIDERS: Emergency Provider Emergency Medicine; PCP Nurse Practitioner Family
DX: M54.41 Lumbago with sciatica, right side (principal)
CPT/HCPCS: 96372; 99283; J1885; J8540

== ENCOUNTER → 2025-03-25 | Outpatient (CLI) | payer MEDICAID, SELFPAY ==
--- NOTE | 2025-03-25 16:16 | XR_ITS ---
Examination: Lumbar spine 3 views TECHNIQUE: AP lateral, lateral lower lumbar spine 3 views Date and time: March 25, 2025 at 1620 hours INDICATIONS: Low back pain beginning 12 days ago. FINDINGS: No lumbar fracture. Grade 1 anterolisthesis L4 on L5. Moderate degenerative disc disease L4-L5 Mild lumbar spondylosis IMPRESSION: Moderate degenerative disc disease L4-L5
== END | disposition home or self-care (01) ==
DX: M51.360 Other intervertebral disc degeneration, lumbar region with discogenic back pain only (principal)
CPT/HCPCS: 72100

== ENCOUNTER 2025-06-04 10:00 | Emergency (ER) | payer MEDICAID, SELFPAY ==
[2025-06-04 10:23] VITALS: BP 152/96; PULSE 89; RESP 18; TEMP 36.8; O2SAT 99; BMI 29.5
[2025-06-04] MEDS: KETOROLAC INJ 60 MG/2 ML VIAL 30 MG IM (11:26)
--- NOTE | 2025-06-04 11:30 | PD.EDADULT ---
ED General RME/HPI General Chief complaint: General Adult/Misc Complain Stated complaint: SCIATIC PAIN TO RIGHT LEG X4 DAYS Time Seen by Provider: 06/04/25 10:05 Source: patient Arrival date/time: 06/04/25 10:00 49-year-old male with no known medical history presents to the emergency room with a chief complaint of pain and tenderness shooting down his right leg x 4 days. Mode of arrival: ambulatory Limitations: no limitations Related Data Previous Rx's ?Medication ?Instructions ?Recorded amoxicillin 875 mg-potassium 1 tab PO Q12H #10 tabs 10/10/24 clavulanate 125 mg tablet hydrocodone 5 mg-acetaminophen 325 1 tab PO Q6H #20 tabs 10/10/24 mg tablet ketorolac 10 mg tablet 10 mg PO Q8H PRN pain #14 tabs 10/10/24 ibuprofen 800 mg tablet 800 mg PO TID PRN pain #30 tabs 03/24/25 cyclobenzaprine 10 mg tablet 10 mg PO TID #14 tabs 06/04/25 Allergies Allergy/AdvReac Type Severity Reaction Status Date / Time No Known Allergies Allergy Verified 06/04/25 10:02 Review of Systems Review of Systems Systems Reviewed: All systems reviewed, normal except as documented Constitutional Constitutional: Reports system reviewed and no additional complaints, except as documented, Denies fatigue, Denies fever(s), Denies headache(s) and Denies weakness Eyes Eyes: Reports system reviewed and no additional complaints, except as documented, Denies blurry vision and Denies change in vision ENT Ears, Nose, Mouth, and Throat: Reports system reviewed and no additional complaints, except as documented, Denies otalgia, Denies headache(s), Denies nasal congestion, Denies throat swelling and Denies vertigo Cardiovascular Cardiovascular: Reports system reviewed and no additional complaints, except as documented, Denies chest pain, Denies dyspnea and Denies dyspnea on exertion Respiratory Respiratory: Reports system reviewed and no additional complaints, except as documented, Denies chest congestion, Denies cough, Denies dyspnea, Denies dyspnea on exertion and Denies wheezing Gastrointestinal Gastrointestinal: Reports system reviewed and no additional complaints, except as documented, Denies abdominal pain, Denies cramping, Denies nausea and Denies vomiting Genitourinary Genitourinary: Reports system reviewed and no additional complaints, except as documented, Denies dysuria and Denies hematuria Musculoskeletal Musculoskeletal: Reports system reviewed and no additional complaints, except as documented, Denies back pain and Reports radiating pain into limb Integumentary/Breasts Skin/Breast: Reports system reviewed and no additional complaints, except as documented and Denies wounds Neurologic Neurologic: Reports system reviewed and no additional complaints, except as documented, Denies confusion, Denies headache(s), Denies lack of coordination, Denies vertigo and Denies weakness Psychiatric Psychiatric: Reports system reviewed and no additional complaints, except as documented, Denies anxiety, Denies confusion, Denies depression, Denies paranoia, Denies suicidal ideation and Denies tactile hallucinations Endocrine Endocrine: Reports system reviewed and no additional complaints, except as documented and Denies fatigue Hematologic/Lymphatic Hematologic/Lymphatic: Reports system reviewed and no additional complaints, except as documented and Denies lymphadenopathy Allergic/Immunologic Allergic/Immunologic: Reports system reviewed and no additional complaints, except as documented, Denies throat swelling, Denies urticaria and Denies wheezing Past Medical History Past Medical History NEUROLOGIC: Negative Neurological Disorders or Seizures CARDIAC: Positive Hypertension; Negative Cardiac Disorders or Congestive Heart Failure RESPIRATORY: Negative Chronic Obstructive Pulmonary Disease (COPD) or Asthma GENITOURINARY: Negative Renal Disease ENDOCRINE: Negative Diabetes Mellitus Type 1 or Diabetes Mellitus Type 2 HEMATOLOGIC: Negative Sickle Cell Disease OTHER HISTORY: Negative Blood Transfusions, Blood Transfusion Reaction or Anesthesia Reactions Social History SMOKING STATUS: Current some day smoker ED Exam General Limitations: Present no limitations General appearance: Present alert and in no apparent distress Head Head exam: Present atraumatic Eye Eye exam: Present normal appearance, PERRL and EOMI ENT ENT exam: Present normal exam, normal oropharynx and mucous membranes moist Neck Neck exam: Present normal inspection, full ROM and trachea midline Chest Chest inspection: Present normal inspection and symmetric chest wall rise Respiratory Respiratory exam: Present normal lung sounds bilaterally Cardiovascular Cardiovascular exam: Present regular rate, normal rhythm and normal heart sounds Abdominal Exam Abdominal exam: Present soft and normal bowel sounds Extremities Exam Extremities exam: Present normal inspection and full ROM Back Exam Back exam: Present normal inspection, full ROM and sciatic notch tenderness (R) Neurological Exam Neurological exam: Present alert, oriented X3 and CN II-XII intact Psychiatric Psychiatric exam: Present normal affect and normal mood Skin Skin exam: Present warm, dry, intact and normal color Course Quality Measures none Orders Category Date Time Status Ketorolac Inj [Toradol Inj] Med 06/04/25 10:26 Discontinued 30 mg IM X1 ONE Vital Signs Vital signs: Vital Signs Temperature 98.2 F 06/04/25 10:23 Pulse Rate 89 06/04/25 10:23 Respiratory Rate 18 06/04/25 10:23 Blood Pressure 152/96 H 06/04/25 10:23 Pulse Oximetry (%) 99 06/04/25 10:23 Oxygen Delivery Method Room Air 06/04/25 10:23 Discharge Plan Plan Patient Disposition: HOME (Self Care) Discharge Disposition comment: Stable Prescriptions/Referrals Prescriptions/Med Rec: New cyclobenzaprine 10 mg tablet 10 mg PO TID Qty: 14 0RF No Action amoxicillin-pot clavulanate 875-125 mg tablet 1 tab PO Q12H Qty: 10 0RF hydrocodone-acetaminophen 5-325 mg tablet 1 tab PO Q6H MDD 4 to Qty: 20 0RF ketorolac 10 mg tablet 10 mg PO Q8H PRN (Reason: pain) Qty: 14 0RF Rx Instructions: maximum total duration of 5 days from all oral, intranasal, or parenteral formulations ibuprofen 800 mg tablet 800 mg PO TID PRN (Reason: pain) Qty: 30 0RF Problem List Clinical Impression: Sciatica Patient/Caregiver Discharge Instructions Education Materials: ED Sciatica Additional Instructions: Ag un seguimiento con thomas proveedor de atenci?n primaria en las pr?ximas 24 a 48 horas. Ante cualquier evidencia de empeoramiento de los signos o s?ntomas, regrese a la lisa de emergencias de inmediato. Print Language: French Stand Alone Forms: [employer] Award Info., Patient Portal Info Letter PA/MEDICAL DIRECTOR OF HOSPICE Supervising Physician PA/MEDICAL DIRECTOR OF HOSPICE Supervising Physician: Dr. Romero [facility] Narrative MDM hospital course: 49-year-old male with no known medical history presents to the emergency room with a chief complaint of pain and tenderness shooting down his right leg x 4 days. Patient is hemodynamically stable and in no apparent distress Physical examination shows tenderness and pain to the patient's right hip that radiates down to his right leg. The findings are consistent with sciatica. Patient denies any saddle anesthesia any loss of bowel or bladder function or any numbness to the lower extremities. Patient is ambulating normally Pain medication was given with significant improvement of the patient's symptoms Patient was discharged and educated to follow-up with primary care provider in the next 24 to 48 hours and return to the emergency room for any evidence of worsening signs or symptoms Clinical Information Provided by patient Medical Records Reviewed None Meds/Rx Considered, not Ordered None Labs/Rad/Tests considered, not Ordered None Chronic Illness/Social Conditions which may negatively complicate care or outcome(s)-explain: None or not applicable EKG EKG not done Lab Interpretation Labs: none Imaging Imaging interpretation: none Medication Administration(s) none Medication Administration History Discontinued Medications Ketorolac Tromethamine (Ketorolac Inj 60 Mg/2 Ml Vial) 30 mg IM X1 ONE Stop: 06/04/25 10:27 Last Admin: 06/04/25 11:26 Dose: 30 mg Documented By: Diagnosis Differential diagnosis: Sciatica/lumbar radiculopathy/lumbar sprain Differential dx and/or dx ruled out: Lumbar sprain Most likely dx, and/or detailed dx discussion: Sciatica Dispositon Disposition: Discharge Home
== END 2025-06-04 13:24 | disposition home or self-care (01) ==
PROVIDERS: Emergency Provider Family Medicine
DX: M54.30 Sciatica, unspecified side (principal); I10 Essential (primary) hypertension; F17.200 Nicotine dependence, unspecified, uncomplicated
CPT/HCPCS: 96372; 99282; J1885

== ENCOUNTER → 2025-07-05 | Outpatient (CLI) | payer MEDICAID, SELFPAY ==
--- NOTE | 2025-07-05 13:30 | XR_ITS ---
Examination: MRI lumbar spine without contrast Date and time of exam: July 05, 2025, 1555 hours INDICATIONS: Low back pain 7 months radiating to the right leg Technique: Multiple MRI axial and sagittal sections lumbar spine. Sagittal T2-weighted images, TR 3500, TE 118 T1 weighted transverse sections, TR 688 T8.5, T2-weighted sagittal sections T1 weighted sagittal sections TR 621, TE 30 T2 axial sections, TR 4, 190, TE 84. Findings: No vertebral body fracture Disc desiccation L3-L4, L4-L5 Grade 1 anterolisthesis 3 mm L4 on L5 No spondylolisthesis L5-S1 3 mm central lumbar disc bulge contiguous with the right S1 nerve root L4-L5 severe significant overall spinal stenosis, 6 mm central lumbar disc bulge, facet arthropathy and thickening of ligamentum flavum circumferentially narrowing the thecal sac with mild bilateral L4 ganglionic compression L3-L4 no disc protrusion L2-L3 no disc protrusion L1-L2 no disc protrusion IMPRESSION: L5-S1 3 mm central lumbar disc bulge contiguous with the right S1 nerve root L4-L5 severe overall spinal stenosis including 6 mm central lumbar disc bulge and mild bilateral L4 ganglionic compression
== END | disposition home or self-care (01) ==
DX: M51.370 Other intervertebral disc degeneration, lumbosacral region with discogenic back pain only (principal); M51.362 Other intervertebral disc degeneration, lumbar region with discogenic back pain and lower extremity pain; M48.061 Spinal stenosis, lumbar region without neurogenic claudication; G95.20 Unspecified cord compression
CPT/HCPCS: 72148